=== PATIENT | male | born 1960 | race Two or more races ===

== ENCOUNTER 2016-10-19 12:08 | Inpatient (IN) | payer MEDICAID ==
[~2016-10-19] VITALS: Ht 165.1 cm; Wt 74.8 kg
[2016-10-19] MEDS ORDERED: Ketorolac 30mg Inj IV ONE (12:30)
[2016-10-19] MEDS ORDERED: Morphine Sulfate 2mg/ml Inj IVP ONE (12:30)
[2016-10-19] MEDS ORDERED: Famotidine 20 MG/ 2ML VIAL IVP ONE (12:30)
[2016-10-19 12:34] VITALS: BP 158/93
[2016-10-19 12:53] LABS: BASOPHILS % (AUTO) 1.8 % (0.0-2.0); EOSINOPHILS % (AUTO) 3.9 % (0.0-3.0); LYMPHOCYTES % (AUTO) 35.6 % (20.0-45.0); MEAN CORPUSCULAR HEMOGLOBIN 27.4 PG (27.0-31.0); MEAN CORPUSCULAR HGB CONC 34.3 G/DL (32.0-36.0); MEAN CORPUSCULAR VOLUME 80 FL (80-99); MONOCYTES % (AUTO) 11.3 % (1.0-10.0); NEUTROPHILS % (AUTO) 47.5 % (45.0-75.0); PLATELET COUNT 353 K/UL (150-450); RED CELL DISTRIBUTION WIDTH 11.2 % (11.6-14.8); WHITE BLOOD COUNT 6.6 K/UL (4.8-10.8)
[2016-10-19 13:09] LABS: INR 1.1 (0.9-1.1); PROTHROMBIN TIME 11.4 SEC (9.30-11.50)
[2016-10-19 13:17] LABS: TROPONIN I < 0.30 ng/mL (<=0.30)
[2016-10-19 13:20] LABS: ALANINE AMINOTRANSFERASE 18 U/L (3-41); ALBUMIN/GLOBULIN RATIO 1.2 (1.0-2.7); ANION GAP 19 (5-15); ASPARTATE AMINO TRANSFERASE 25 U/L (5-40); CALCIUM 9.7 mg/dL (8.6-10.2); CARBON DIOXIDE 23 mEQ/L (20-30); CHLORIDE 80 mEQ/L (98-107); CREATININE 0.7 mg/dL (0.7-1.2); GLOMERULAR FILTRATION RATE > 60 mL/min (>60); HEMOLYSIS 10; POTASSIUM 3.5 mEQ/L (3.4-4.9); SODIUM 122 mEQ/L (135-145); TOTAL PROTEIN 7.8 g/dL (6.6-8.7)
[2016-10-19 14:04] LABS: ERYTHROCYTE SEDIMENTATION RATE 2 MM/HR (0-20)
[2016-10-19 14:20] VITALS: BP 147/83
[2016-10-19 15:06] LABS: APPEARANCE,URINE CLEAR; KETONES,URINE NEGATIVE (NEGATIVE); LEUKOCYTE ESTERASE ,URINE NEGATIVE (NEGATIVE); NITRITE,URINE NEGATIVE (NEGATIVE); PH,URINE 8 (4.5-8.0); PROTEIN,URINE NEGATIVE (NEGATIVE); UROBILINOGEN,URINE NORMAL MG/DL (0.0-1.0)
--- NOTE | 2016-10-19 15:07 | Emergency Room Report ---
History of Present Illness General Chief Complaint: Flu Like Symptoms Source: Patient, EMS Present Illness HPI The patient presents with 2 days of weakness and headache. He's also felt unsteady on his feet. He's been vomiting. He has no diarrhea. He is a history of diabetes and takes homeopathic medicine for that. He's not sure how his blood sugars are but paramedics had a glucose of 135 in the field. The pain in his head is 8/10, diffuse, not radiating, pressure. Only homeopathic meds taken without relief. No prior headaches. Onset gradual. No neck stiffness. The pain in his stomach is also diffuse, constant and pressure. It is less than the headache. No fever, change in stools, chest pain (EKG in field reported as normal), dyspnea, cough, URI symptoms, rashes, extremity pain. No numbness. Some generalized weakness. No depression. On homeopathic meds for diabetes. 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 daughter Reviewed Nursing Documentation: PMH: Agreed, PSxH: Agreed Nursing Documentation-PMH Past Medical History: No History, Except For Hx Hypertension: Yes Hx Diabetes: Yes Review of Systems All Other Systems: negative except mentioned in HPI Physical Exam Vital Signs Date Time Temp Pulse Resp B/P Pulse Ox O2 Delivery O2 Flow Rate FiO2 10/19/16 12:06 99.9 84 24 158/93 97 Room Air 10/19/16 12:20 97 Sp02 EP Interpretation: reviewed, normal General Appearance: well appearing, no apparent distress, GCS 15 Head: normocephalic Eyes: bilateral eye PERRL, bilateral eye normal inspection ENT: moist mucus membranes Neck: full range of motion, supple, no meningismus Respiratory: lungs clear, normal breath sounds Cardiovascular #1: regular rate, rhythm Cardiovascular #2: 2+ radial (R) Gastrointestinal: normal inspection, normal bowel sounds, non tender, no mass, non-distended Musculoskeletal: back normal, gait/station normal, normal range of motion Neurologic: alert, oriented x3, motor strength/tone normal, DTRs symmetric, sensory intact, speech normal Psychiatric: depressed affect Skin: normal inspection, warm/dry Medical Decision Making Diagnostic Impression: Primary Impression: Hyponatremia Additional Impressions: Diabetes Qualified Codes: E11.9 - Type 2 diabetes mellitus without complications Headache Qualified Codes: R51 - Headache ER Course Patient presents with headache and vomiting with h/o diabetes. Ddx: tension, migraine, electrolyte abnormality, viral syndrome amongst others. No fever or meningismus so meningitis and cerebritis less likely. Evaluation with CT, labs , EKG and CXR. Treatment with IV hydration and analgesia. Labs with low sodium. Mildly elevated glucose. CT, CXR and EKG normal. Treated with saline and analgesia with improvement. May need further evaluation of RIOS. Consider MRI. Admit med Dr. Mendoza. Laboratory Tests Test 10/19/16 12:30 10/19/16 14:30 White Blood Count 6.6 K/UL (4.8-10.8) Red Blood Count 5.50 M/UL (4.70-6.10) Hemoglobin 15.1 G/DL (14.2-18.0) Hematocrit 43.9 % (42.0-52.0) Mean Corpuscular Volume 80 FL (80-99) Mean Corpuscular Hemoglobin 27.4 PG (27.0-31.0) Mean Corpuscular Hemoglobin Concent 34.3 G/DL (32.0-36.0) Red Cell Distribution Width 11.2 % (11.6-14.8) L Platelet Count 353 K/UL (150-450) Mean Platelet Volume 6.0 FL (6.5-10.1) L Neutrophils (%) (Auto) 47.5 % (45.0-75.0) Lymphocytes (%) (Auto) 35.6 % (20.0-45.0) Monocytes (%) (Auto) 11.3 % (1.0-10.0) H Eosinophils (%) (Auto) 3.9 % (0.0-3.0) H Basophils (%) (Auto) 1.8 % (0.0-2.0) Erythrocyte Sedimentation Rate 2 MM/HR (0-20) Prothrombin Time 11.4 SEC (9.30-11.50) Prothrombin Time INR 1.1 (0.9-1.1) PTT 33 SEC (23-33) Sodium Level 122 mEQ/L (135-145) L Potassium Level 3.5 mEQ/L (3.4-4.9) Chloride Level 80 mEQ/L (98-107) L Carbon Dioxide Level 23 mEQ/L (20-30) Anion Gap 19 (5-15) H Blood Urea Nitrogen 7 mg/dL (7-23) Creatinine 0.7 mg/dL (0.7-1.2) Estimate Glomerular Filtration Rate > 60 mL/min (>60) Glucose Level 122 mg/dL (74-106) H Lactic Acid Level 1.70 mmol/L (0.66-2.22) Calcium Level 9.7 mg/dL (8.6-10.2) Total Bilirubin 0.6 mg/dL (0.0-1.2) Aspartate Amino Transferase (AST) 25 U/L (5-40) Alanine Aminotransferase (ALT) 18 U/L (3-41) Alkaline Phosphatase 79 U/L (40-129) Total Creatine Kinase 572 U/L (38-174) H Troponin I < 0.30 ng/mL (<=0.30) Pro-B-Type Natriuretic Peptide 61 pg/mL (0-125) Total Protein 7.8 g/dL (6.6-8.7) Albumin 4.4 g/dL (3.5-5.2) Globulin 3.4 g/dL Albumin/Globulin Ratio 1.2 (1.0-2.7) Urine Color Pending Urine Appearance Pending Urine pH Pending Urine Specific [place] Pending Urine Protein Pending Urine Glucose (UA) Pending Urine Ketones Pending Urine Occult Blood Pending Urine Nitrite Pending Urine Bilirubin Pending Urine Urobilinogen Pending Urine Leukocyte Esterase Pending Urine Random Sodium Pending EKG Diagnostic Results Rate: normal Rhythm: NSR ST Segments: no acute changes Rhythm Strip Diag. Results EP Interpretation: yes Rhythm: NSR, no PVC's, no ectopy Chest X-Ray Diagnostic Results EP Interpretation: Yes Findings: no consolidation, no effusion, no pneumothorax, no acute cardiopulmonary disease Number of Views: 1 CT/MRI/US Diagnostic Results CT/MRI/US Diagnostic Results : Imaging Test Ordered: head Impression nl Last Vital Signs Date Time Temp Pulse Resp B/P Pulse Ox O2 Delivery O2 Flow Rate FiO2 10/19/16 16:37 97.0 71 22 150/90 98 Room Air 10/19/16 15:58 97 Status: improved Disposition: ADMITTED INPATIENT Condition: Serious Referrals: NOT CHOSEN IPA/MD,REFERRING (PCP) Marco Garcia M.D. October 19, 2016 15:07
[2016-10-19] MEDS ORDERED: NKM (15:12)
[2016-10-19] MEDS ORDERED: Morphine Sulfate 4mg/ml Inj IVP PRN (15:30)
[2016-10-19 16:37] VITALS: BP 150/90
[2016-10-19 20:00] VITALS: BP 123/71
--- NOTE | 2016-10-19 20:12 | History & Physical ---
History and Physical History & Physicial > dictated # [id number] JOYCELYN CLARK October 19, 2016 20:12
[2016-10-19] MEDS ORDERED: Norco 10mg/325mg tab ORAL PRN (20:15)
[2016-10-19] MEDS: Morphine Sulfate 4mg/ml Inj IV PRN (21:27)
[2016-10-19] MEDS ORDERED: NaCl 3% 500ml 250 ML IV ONE (21:30)
[2016-10-19] MEDS: NovoLOG Insulin Flexpen SUBQ SCH (21:33)
[2016-10-20] VITALS: BP 108/67
--- NOTE | 2016-10-20 03:39 | History and Physical Report ---
DATE OF ADMISSION: 10/19/2016 CHIEF COMPLAINT: Weakness and headache. HISTORY OF PRESENT ILLNESS: This is a 56-year-old male, who came to the emergency room with the chief complaint of headaches and weakness for the past two days. The patient has also nausea and has been vomiting. The patient presented to the emergency room and was found to have hyponatremia with the serum sodium 122 and was admitted for further care. PAST MEDICAL HISTORY: The patient does have a history of diabetes, but he was not taking any medication except some herbal medicines and there is also reported history of hypertension. MEDICATIONS: None at home. ALLERGIES: No known drug allergies. SOCIAL HISTORY: No history of smoking or alcohol abuse. REVIEW OF SYSTEMS: As above. PHYSICAL EXAMINATION: GENERAL: The patient is a 56-year-old male, in no acute distress. VITAL SIGNS: Blood pressure is 158/92, pulse 84, temperature 99.4 degrees, and respiratory rate 24. HEENT: [place] conjunctivae. Anicteric sclerae. NECK: Supple. LUNGS: Clear to auscultation. HEART: S1 and S2 without murmurs or rubs. ABDOMEN: Soft and nontender. EXTREMITIES: No cyanosis or edema. LABORATORY FINDINGS: CBC shows a WBC of 6.6, hematocrit 33.9, hemoglobin 15.1, and platelet 353,000. The chemistry panel shows a sodium of 122, potassium 3.5, chloride 80, CO2 23, BUN 7, creatinine 0.7, and glucose 122. Albumin is 4.4. ASSESSMENT: This is a 56-year-old male was admitted with nausea, vomiting, and some headache and has hyponatremia. He did had urine sodium checked in the emergency room was 105, so he does not appear to have psychogenic polydipsia although he states he takes a lot of fluids every day. 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 Other possibility such as hypothyroidism need to be ruled out. PLAN: The patient will be on free water restriction. I will give the patient 3% saline for a total of 250 mL because of these symptoms. The patient's TSH will be checked with chemistry panel tomorrow. Further adjustment will be made based on those results. Ulisses Leblanc M.D. DR: Shanice JOB#: [id number] CC: TIMO
[2016-10-20 04:00] VITALS: BP 101/57
[2016-10-20] MEDS: NovoLOG Insulin Flexpen SUBQ SCH ×4 (06:30→21:00)
[2016-10-20 06:35] LABS: BASOPHILS % (AUTO) 1.5 % (0.0-2.0); EOSINOPHILS % (AUTO) 3.8 % (0.0-3.0); LYMPHOCYTES % (AUTO) 30.4 % (20.0-45.0); MEAN CORPUSCULAR HEMOGLOBIN 28.4 PG (27.0-31.0); MEAN CORPUSCULAR VOLUME 81 FL (80-99); MONOCYTES % (AUTO) 11.8 % (1.0-10.0); NEUTROPHILS % (AUTO) 52.6 % (45.0-75.0); PLATELET COUNT 324 K/UL (150-450); RED BLOOD COUNT 4.93 M/UL (4.70-6.10); RED CELL DISTRIBUTION WIDTH 11.6 % (11.6-14.8); WHITE BLOOD COUNT 5.7 K/UL (4.8-10.8)
[2016-10-20 08:59] LABS: ANION GAP 15 (5-15); CALCIUM 8.9 mg/dL (8.6-10.2); CARBON DIOXIDE 23 mEQ/L (20-30); CHLORIDE 91 mEQ/L (98-107); CREATININE 0.7 mg/dL (0.7-1.2); GLOMERULAR FILTRATION RATE > 60 mL/min (>60); HEMOLYSIS 15; POTASSIUM 5.1 mEQ/L (3.4-4.9); SODIUM 129 mEQ/L (135-145)
[2016-10-20] MEDS ORDERED: Tubing IV Secondary IV ONE (09:33)
[2016-10-20] MEDS: Morphine Sulfate 4mg/ml Inj IV PRN ×2 (10:44→19:19)
[2016-10-20 12:00] VITALS: BP 120/75
--- NOTE | 2016-10-20 13:36 | General Progress Note ---
Assessment/Plan Problem List: (1) Hyponatremia ICD Codes: E87.1 - Hypo-osmolality and hyponatremia SNOMED: 44150949 (2) Headache ICD Codes: R51 - Headache SNOMED: 81974792 Qualifiers: Qualified Codes: R51 - Headache (3) Diabetes ICD Codes: E11.9 - Type 2 diabetes mellitus without complications SNOMED: 41576775 Qualifiers: Qualified Codes: E11.9 - Type 2 diabetes mellitus without complications Status Narrative better Assessment/Plan CT brain free water restriction follow S Na Subjective Allergies: Coded Allergies: No Known Allergies (Unverified , 10/19/16) Subjective C/O RIOS Objective Last 24 Hour Vital Signs Date Time Temp Pulse Resp B/P Pulse Ox O2 Delivery O2 Flow Rate FiO2 10/20/16 12:00 96.1 70 16 120/75 95 Room Air 10/20/16 04:00 97.0 76 18 101/57 96 Room Air 10/20/16 00:00 97.0 75 18 108/67 96 Room Air 10/19/16 21:57 97.0 10/19/16 20:00 96.8 73 18 123/71 96 Room Air 10/19/16 19:04 97.0 10/19/16 16:37 97.0 71 22 150/90 98 Room Air 10/19/16 16:35 97.0 10/19/16 15:58 97.6 75 24 120/74 97 Room Air 97 10/19/16 14:58 97.6 10/19/16 14:58 97.6 10/19/16 14:20 97.6 66 24 147/83 97 Room Air 97 Intake and Output 10/19/16 10/20/16 19:00 07:00 Intake Total 1000 ml 150 ml Balance 1000 ml 150 ml Intake Oral 0 ml IV Total 1000 ml 150 ml Laboratory Tests 10/19/16 14:30: Urine Color Pale yellow, Urine Appearance Clear, Urine pH 8, Urine Specific [place] 1.015, Urine Protein Negative, Urine Glucose (UA) Negative, Urine Ketones Negative, Urine Occult Blood Negative, Urine Nitrite Negative, Urine Bilirubin Negative, Urine Urobilinogen Normal, Urine Leukocyte Esterase Negative , Urine Random Sodium 105 10/19/16 20:00: Urine Osmolality [Pending] 10/20/16 05:05: White Blood Count 5.7, Red Blood Count 4.93, Hemoglobin 14.0L, Hematocrit 40.0L , Mean Corpuscular Volume 81, Mean Corpuscular Hemoglobin 28.4, Mean Corpuscular Hemoglobin Concent 35.0, Red Cell Distribution Width 11.6, Platelet Count 324, Mean Platelet Volume 6.0L, Neutrophils (%) (Auto) 52.6, Lymphocytes ( %) (Auto) 30.4, Monocytes (%) (Auto) 11.8H, Eosinophils (%) (Auto) 3.8H, Basophils (%) (Auto) 1.5, Sodium Level 129L, Potassium Level 5.1H, Chloride Level 91L, Carbon Dioxide Level 23, Anion Gap 15, Blood Urea Nitrogen 10, Creatinine 0.7, Estimat Glomerular Filtration Rate > 60, Glucose Level 104, Calcium Level 8.9, Thyroid Stimulating Hormone (TSH) 2.590 Height (Feet): 5 Height (Inches): 5.00 Weight (Pounds): 165 Cardiovascular: normal rate Respiratory/Chest: lungs clear JOYCELYN CLARK October 20, 2016 13:36
[2016-10-20 20:00] VITALS: BP 125/69
[2016-10-20 23:36] VITALS: BP 99/61
[2016-10-21 04:00] VITALS: BP 109/64
[2016-10-21] MEDS: NovoLOG Insulin Flexpen SUBQ SCH ×2 (06:05→12:01)
[2016-10-21 06:31] LABS: ANION GAP 14 (5-15); CALCIUM 9.2 mg/dL (8.6-10.2); CARBON DIOXIDE 25 mEQ/L (20-30); CHLORIDE 93 mEQ/L (98-107); CREATININE 0.8 mg/dL (0.7-1.2); GLOMERULAR FILTRATION RATE > 60 mL/min (>60); HEMOLYSIS 2; POTASSIUM 4.7 mEQ/L (3.4-4.9); SODIUM 132 mEQ/L (135-145)
--- NOTE | 2016-10-21 08:47 | Diagnostic Imaging Report ---
Indication: Chest pain Technique: XRAY CHEST 1 V Comparison: None Findings: Cardiomediastinal silhouette is within normal limits. There is no consolidation or pleural effusion. Degenerative changes of the spine are seen. Impression: No acute cardiopulmonary disease.
--- NOTE | 2016-10-21 08:47 | Diagnostic Imaging Report ---
Indication: Headache Technique: Continuous helical CT scanning of the head was performed utilizing automated exposure control without intravenous contrast material. Axial and coronal reconstructions were obtained. Comparison: None CT dose: Total DLP 1362 mGycm; CTDI vol 70.4 mGy Findings: There is no acute intracranial hemorrhage, mass effect or cortical edema. The ventricles, cisterns and sulci are within normal limits. The posterior fossa and fourth ventricle are unremarkable. Sellar and suprasellar regions are grossly unremarkable. Visualized mastoid air cells and paranasal sinuses are unremarkable. No focal lesions of the bony calvarium or soft tissues of the scalp are seen. There is a chronic appearing defect of the right medial orbital wall. Impression: No evidence of acute intracranial hemorrhage, mass effect or cortical edema. MRI may be obtained for more sensitive evaluation as clinically indicated. The CT scanner at [facility] is accredited by the [employer] and the scans are performed using protocols designed to limit radiation exposure to as low as reasonably achievable to attain images of sufficient resolution adequate for diagnostic evaluation.
[2016-10-21 09:00] VITALS: BP 111/60
--- NOTE | 2016-10-21 11:07 | Diagnostic Imaging Report ---
Indication: Dizziness Technique: Contiguous 5 mm thick transaxial imaging of the head obtained in a Siemens Sensation [address] scanner. Soft tissue and bone windows generated. Total Dose length Product (DLP): [address] Dose Index Volume (CTDIvol): 70.38 mGy Comparison: 10/19/16 Findings: The size and configuration of the cortical sulci, basal cisterns, and ventricles are within normal limits for age. There is no mass effect, midline shift, or edema identified. There is no evidence of acute hemorrhage or abnormal intra-axial or extra-axial fluid collections. The bones and soft tissues are unremarkable. Impression: No mass effect, edema or acute bleed. No change. The CT scanner at [facility] is accredited by the [employer] and the scans are performed using dose optimization techniques as appropriate to a performed exam including Automatic Exposure control.
[2016-10-21 12:18] VITALS: BP 105/70
[2016-10-21] MEDS ORDERED: METFORMIN HCL500 M1 ORAL (12:49)
--- NOTE | 2016-10-21 12:56 | Consultation ---
Consult Note Assessment/Plan Dc dictated # [id number] JOYCELYN CLARK October 21, 2016 12:56
--- NOTE | 2016-10-21 14:17 | Wound Care Consultation ---
Wound Assessment Wound Assessment #1: Wound Number: #1 Wound Present on Admission: Yes New Wound: No Status Change of Wound: No Wound Location Body Site Modif: left, lateral Wound Location Body Site: heel Wound Type: other - Diabetic ulcer Newton Test: Does not Newton Wound Thickness: Full Thickness Wound Length: 0.5 Wound Width: 0.5 Wound Depth: utd Percent of Wound [place]/Red: 50 Percent of Wound Bed Yellow/Wh: 50 - noted dry thick callus to surrounding outter skin with opening noted to middle of wound bed. Wound Drainage Odor: None/Absent Tissue Surrounding Wound: Indurated Wound General Appearance: Clean/Dry - site noted dry Wound Assessment #2: Wound Number: #2 Wound Present on Admission: Yes New Wound: No Status Change of Wound: No Wound Location Body Site Modif: mid Wound Location Body Site: sacral Wound Type: scar Newton Test: Does not Newton Wound Thickness: Full Thickness Wound Length: 5.0 Wound Width: 6.0 Percent of Wound [place]/Red: 100 Wound Drainage Amount: None Wound Drainage Odor: None/Absent Tissue Surrounding Wound: Intact Wound General Appearance: Open to air, Clean/Dry Wound Comment #1 left lateral heal diabetic ulcer. #2 Mid sacral full thickness scar tissue. Recommendation. - Local wound care as ordered. - Keep clean and dry. -Turn and reposition. - Offload affected site. -Avoid shear and friction. -Optimize nutrition. -Assess and notify MD for any changes of condition noted to skin. ELLIOT REYES October 21, 2016 14:17
--- NOTE | 2016-10-22 06:19 | Discharge Summary ---
DATE OF ADMISSION: 10/19/2016 DATE OF DISCHARGE: 10/21/2016 CHIEF COMPLAINT: The patient had weakness and headache. HISTORY OF PRESENT ILLNESS: This is a 56-year-old male, who is admitted for above symptoms. He was found to have severe hyponatremia with a serum sodium of 122. HOSPITAL COURSE: The patient was given 3% saline at 50 mL an hour for a total of 250 mL. He had urine studies done, which showed a urine sodium of 105, so it was felt that his hyponatremia was a result of SIADH. He had a CT of the brain, which was negative. The patient was kept on free water restriction. On 10/20/2016, his serum sodium was 129 and on 10/21/2016, it was 132. The patient was feeling much better and wanted to go home. Also a TSH was checked and was 2.59. The patient had a history of borderline diabetes and he was on sliding scale insulin, however, he was using minimal amount of insulin, so it was decided to give him a prescription for metformin 500 mg twice a day. DISCHARGE DIAGNOSES: 1. 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 2. Diabetes mellitus. DISCHARGE MEDICATIONS: Metformin 500 mg twice a day. The patient was also advised to restrict his fluid intake to 1 liter a day for the next week. Ulisses Leblanc M.D. DR: LORETTA JOB#: [id number] CC:
== END 2016-10-21 13:45 | disposition home or self-care (01) | DRG 424 ==
LOC: EDBD 12:08 → EMR 12:40 → EDBEDREQ 14:32 → 4W 15:00
DX: E22.2 Syndrome of inappropriate secretion of antidiuretic hormone (principal); I10 Essential (primary) hypertension; E11.9 Type 2 diabetes mellitus without complications
CPT/HCPCS: 36415; 70450; 71010; 80048; 80053; 81003; 82550; 82962; 83605; 83880; 83935; 84300; 84443; 84484; 85025; 85610; 85651; 85730; 86850; 86900; 86901; 93005; J1815; J2405

== ENCOUNTER 2016-12-21 21:14 | Emergency (ER) | payer SELFPAY ==
[~2016-12-21] VITALS: Ht 167.6 cm; Wt 72.6 kg
[~2016-12-21 21:14] MED LIST: METFORMIN HCL500 M1 ORAL; NKM
[2016-12-21] MEDS ORDERED: NKM (21:34)
[2016-12-21] MEDS ORDERED: Bacitracin Oint UD TOPIC ONE (21:45)
[2016-12-21] MEDS ORDERED: Tetanus/Diptheria/Pertussis Vaccine 0.5ml Syr IM ONE (21:45)
[2016-12-21] MEDS ORDERED: Norco 5mg/325mg tab ORAL ONE (21:45)
[2016-12-21 22:10] VITALS: BP 158/78
--- NOTE | 2016-12-22 00:11 | Emergency Room Report ---
History of Present Illness General Chief Complaint: Pain Source: Patient Present Illness HPI Patient presents with severe L leg pain. He had sutures placed over a week ago in his foot for a cut. Now he complains of pain shooting up the outside and back of his leg. 9/10, sharp aching, constant and worse when standing or trying to walk. He feels his veins popped out and became swollen. No fevers. No redness of skin. No dyspnea or chest pain. No prior clots. He has not taken any medicine to help the pain. He has diabetes which he states is fairly well controlled. No URI sy, cough, NVD, dysuria, other extremity pain. The pain causes some anxiety. Allergies: Coded Allergies: No Known Allergies (Unverified , 10/19/16) Patient History Past Medical History: see triage record Social History: Denies: smoking Social History Narrative home Reviewed Nursing Documentation: PMH: Agreed, PSxH: Agreed Nursing Documentation-PMH Hx Cardiac Problems: Yes Hx Hypertension: Yes Hx Diabetes: Yes Hx Cancer: No Hx Gastrointestinal Problems: No Hx Neurological Problems: No Review of Systems All Other Systems: negative except mentioned in HPI Physical Exam Vital Signs Date Time Temp Pulse Resp B/P Pulse Ox O2 Delivery O2 Flow Rate FiO2 12/21/16 21:29 98.2 83 20 190/85 100 Room Air Sp02 EP Interpretation: reviewed, normal General Appearance: well appearing, GCS 15, mild distress - wile walking Head: normocephalic Eyes: bilateral eye PERRL, bilateral eye normal inspection ENT: moist mucus membranes Neck: supple Respiratory: lungs clear, normal breath sounds Cardiovascular #1: regular rate, rhythm Cardiovascular #2: 2+ radial (R) Gastrointestinal: normal inspection, normal bowel sounds, non tender, no mass, non-distended Musculoskeletal: back normal, gait/station normal, normal range of motion, no calf tenderness, Abdirashid's Sign negative Neurologic: alert, oriented x3, grossly normal Psychiatric: anxious Skin: normal inspection, warm/dry, wd healing/no infection noted - no erythema , sutures intact Medical Decision Making Diagnostic Impression: Primary Impression: Leg pain Qualified Codes: M79.605 - Pain in left leg Additional Impressions: Encounter for removal of sutures Diabetes Qualified Codes: E11.8 - Type 2 diabetes mellitus with unspecified complications ER Course Patient with leg pain after sutures in his foot. DDx: mechanical variance, DVT , cellulitis, neuropathy amongst others. Emergent evaluation with non-invasive study, accucheck. Sutures will be removed. He will be treated for pain. Sutures removed. Vasc study negative for DVT. Accucheck 153. Patient improved and re-assured. Patient stable for outpatient observation and treatment. CT/MRI/US Diagnostic Results CT/MRI/US Diagnostic Results : Imaging Test Ordered: non-invasive vasc L leg Impression no dvt Last Vital Signs Date Time Temp Pulse Resp B/P Pulse Ox O2 Delivery O2 Flow Rate FiO2 12/22/16 00:29 98.2 68 20 152/80 100 Room Air Status: improved Disposition: HOME, SELF-CARE Condition: Improved Scripts Ibuprofen* (MOTRIN*) 600 Mg Tablet 600 MG ORAL Q6H Y for For Pain, #20 TAB Prov: Marco Garcia M.D. 12/22/16 Tramadol Hcl* (ULTRAM*) 50 Mg Tablet 50 MG ORAL Q6H Y for For Pain, #10 TAB 0 Refills Prov: Marco Garcia M.D. 12/22/16 Bacitracin (Bacitracin) 28.4 Gm Oint...g. 1 APPLIC TOPIC BID, #10 GM Prov: Marco Garcia M.D. 12/22/16 Referrals: NOT CHOSEN TORI/,REFERRING (PCP) Marco Garcia M.D. Dec 22, 2016 00:11
[2016-12-22] MEDS ORDERED: IBUPROFEN600 MG ORAL (00:16)
[2016-12-22] MEDS ORDERED: TRAMADOL HCL50 MG ORAL (00:16)
[2016-12-22] MEDS ORDERED: BACITRACIN15 GM TOPIC (00:16)
[2016-12-22 00:29] VITALS: BP 152/80
--- NOTE | 2016-12-25 07:51 | Diagnostic Imaging Report ---
APPROVED REPORT CPT Code: 24720 Present Symptoms Lower Extremity Pain: Left LEFT LEG: Venous imaging reveals recanalized chronic thrombus in mid superficial femoral chen.Large collateral vein noted anterior to the superficial femoral artery. Imaging also reveals patency of the common femoral , popliteal and calf veins. The greater saphenous vein is also within normal limits. Doppler indicates normal spontaneous flow within these segments.
== END 2016-12-22 00:31 | disposition home or self-care (01) ==
LOC: EMR 22:00
DX: M79.605 Pain in left leg (principal); E11.9 Type 2 diabetes mellitus without complications; Z48.02 Encounter for removal of sutures; Z23 Encounter for immunization; I10 Essential (primary) hypertension
CPT/HCPCS: 90471; 90715; 93971; 96372; 99283

== ENCOUNTER 2017-02-02 17:41 | Inpatient (IN) | payer SELFPAY ==
[~2017-02-02] VITALS: Ht 167.6 cm; Wt 76.2 kg
[~2017-02-02 17:41] MED LIST changes: +BACITRACIN15 GM TOPIC; +IBUPROFEN600 MG ORAL; +TRAMADOL HCL50 MG ORAL
[2017-02-02 18:00] VITALS: BP 152/74
[2017-02-02] MEDS ORDERED: LORazepam Inj 2mg/ml 1ml IV ONE (18:00)
[2017-02-02] MEDS ORDERED: Nitroglycerin 2% oint pkt TOPIC ONE (18:00)
[2017-02-02] MEDS ORDERED: Morphine Sulfate 4mg/ml Inj IVP ONE ×2 (18:00→21:00)
[2017-02-02 18:18] LABS: BASOPHILS % (AUTO) 1.9 % (0.0-2.0); LYMPHOCYTES % (AUTO) 42.2 % (20.0-45.0); MEAN CORPUSCULAR HEMOGLOBIN 29.8 PG (27.0-31.0); MEAN CORPUSCULAR HGB CONC 37.3 G/DL (32.0-36.0); MEAN CORPUSCULAR VOLUME 80 FL (80-99); MEAN PLATELET VOLUME 4.9 FL (6.5-10.1); MONOCYTES % (AUTO) 9.3 % (1.0-10.0); NEUTROPHILS % (AUTO) 42.5 % (45.0-75.0); PLATELET COUNT 292 K/UL (150-450); RED BLOOD COUNT 4.47 M/UL (4.70-6.10); RED CELL DISTRIBUTION WIDTH 11.5 % (11.6-14.8); WHITE BLOOD COUNT 6.1 K/UL (4.8-10.8)
[2017-02-02 18:31] LABS: INR 1.1 (0.9-1.1); PROTHROMBIN TIME 11.2 SEC (9.30-11.50)
[2017-02-02 18:32] LABS: TROPONIN I < 0.30 ng/mL (<=0.30)
[2017-02-02 18:36] LABS: ALANINE AMINOTRANSFERASE 12 U/L (3-41); ALBUMIN/GLOBULIN RATIO 1.5 (1.0-2.7); ANION GAP 16 (5-15); ASPARTATE AMINO TRANSFERASE 22 U/L (5-40); CALCIUM 8.6 mg/dL (8.6-10.2); CARBON DIOXIDE 22 mEQ/L (20-30); CHLORIDE 84 mEQ/L (98-107); CREATININE 0.7 mg/dL (0.7-1.2); GLOMERULAR FILTRATION RATE > 60 mL/min (>60); HEMOLYSIS 7; POTASSIUM 3.2 mEQ/L (3.4-4.9); SODIUM 122 mEQ/L (135-145); TOTAL PROTEIN 7.2 g/dL (6.6-8.7)
--- NOTE | 2017-02-02 18:44 | Emergency Room Report ---
History of Present Illness General Chief Complaint: Chest Pain Source: Patient Present Illness HPI The patient presents with severe left-sided chest pain. He states it is pressure. It began yesterday. He feels radiating up to his left arm. He also feels short of breath and also week at this time. It is constant and worsening. The pain is 10/10 at this moment. He denies any fevers or productive cough. He also complains of headache. The patient's been seen for similar pain in the past. Was admitted in October for hyponatremia. He has been seen for an ankle wound which was sutured and sutures were removed. He still complains of problems with some pain in his ankle. He has diabetes and states sugars fairly well controlled, not on insulin. Some nausea, no vomit. No change in bowels. Allergies: Coded Allergies: No Known Allergies (Unverified , 10/19/16) Patient History Past Medical History: see triage record Social History: Denies: smoking Social History Narrative sales Reviewed Nursing Documentation: PMH: Agreed, PSxH: Agreed Nursing Documentation-PMH Hx Cardiac Problems: Yes Hx Hypertension: Yes Hx Diabetes: Yes Hx Cancer: No Hx Gastrointestinal Problems: No Hx Neurological Problems: No Review of Systems All Other Systems: negative except mentioned in HPI Physical Exam Vital Signs Date Time Temp Pulse Resp B/P (MAP) Pulse Ox O2 Delivery O2 Flow Rate FiO2 02/02/17 17:45 98.2 81 12 166/85 100 02/02/17 18:00 Room Air Sp02 EP Interpretation: reviewed, normal General Appearance: well appearing, GCS 15, mild distress Head: normocephalic, atraumatic Eyes: bilateral eye normal inspection, bilateral eye PERRL ENT: moist mucus membranes Neck: supple Respiratory: lungs clear, normal breath sounds Cardiovascular #1: regular rate, rhythm Cardiovascular #2: 2+ radial (R) Gastrointestinal: normal inspection, normal bowel sounds, non tender, no mass, non-distended Musculoskeletal: back normal, gait/station normal, normal range of motion Neurologic: alert, oriented x3, other - some carpal-pedal spasm, grossly normal Psychiatric: anxious Skin: normal inspection, warm/dry Medical Decision Making Diagnostic Impression: Primary Impression: Hyponatremia Additional Impressions: Chest pain Qualified Codes: R07.9 - Chest pain, unspecified Anxiety ER Course Patient presents with chest pressure and dysphoria. Differential includes acute myocardial infarction, acute coronary syndrome, electrolyte imbalance (in particular with history of hyponatremia), costochondritis, and anxiety amongst others. Evaluation with will be with EKG and cardiac monitoring with labs including electrolytes and troponin. The patient be treated with aspirin and nitrates and Ativan. EKG normal. CXR normal. Labs significant for low sodium and slightly elevated glucose. Troponin negative. Urine sodium 129. Improved with treatment. C/O headache. Morphine ordered. Patient clinically stable for telemetry. Dr. Mitchell wants patient in [facility] or ICU due to 3% NS. Will stop 3% and repeat sodium. Repeat sodium 129. Improved and stable for admission to telemetry. Admit telemetry, Dr. Vargas. Dr. Mitchell implementation director. Laboratory Tests Test 02/02/17 18:05 02/02/17 19:00 White Blood Count 6.1 K/UL (4.8-10.8) Red Blood Count 4.47 M/UL (4.70-6.10) L Hemoglobin 13.3 G/DL (14.2-18.0) L Hematocrit 35.7 % (42.0-52.0) L Mean Corpuscular Volume 80 FL (80-99) Mean Corpuscular Hemoglobin 29.8 PG (27.0-31.0) Mean Corpuscular Hemoglobin Concent 37.3 G/DL (32.0-36.0) H Red Cell Distribution Width 11.5 % (11.6-14.8) L Platelet Count 292 K/UL (150-450) Mean Platelet Volume 4.9 FL (6.5-10.1) L Neutrophils (%) (Auto) 42.5 % (45.0-75.0) L Lymphocytes (%) (Auto) 42.2 % (20.0-45.0) Monocytes (%) (Auto) 9.3 % (1.0-10.0) Eosinophils (%) (Auto) 4.0 % (0.0-3.0) H Basophils (%) (Auto) 1.9 % (0.0-2.0) Prothrombin Time 11.2 SEC (9.30-11.50) Prothrombin Time INR 1.1 (0.9-1.1) PTT 31 SEC (23-33) Sodium Level 122 mEQ/L (135-145) L Potassium Level 3.2 mEQ/L (3.4-4.9) L Chloride Level 84 mEQ/L (98-107) L Carbon Dioxide Level 22 mEQ/L (20-30) Anion Gap 16 (5-15) H Blood Urea Nitrogen 7 mg/dL (7-23) Creatinine 0.7 mg/dL (0.7-1.2) Estimate Glomerular Filtration Rate > 60 mL/min (>60) Glucose Level 154 mg/dL (74-106) H Calcium Level 8.6 mg/dL (8.6-10.2) Total Bilirubin 0.4 mg/dL (0.0-1.2) Aspartate Amino Transferase (AST) 22 U/L (5-40) Alanine Aminotransferase (ALT) 12 U/L (3-41) Alkaline Phosphatase 77 U/L (40-129) Total Creatine Kinase 575 U/L (38-174) H Troponin I < 0.30 ng/mL (<=0.30) Pro-B-Type Natriuretic Peptide 23 pg/mL (0-125) Total Protein 7.2 g/dL (6.6-8.7) Albumin 4.4 g/dL (3.5-5.2) Globulin 2.8 g/dL Albumin/Globulin Ratio 1.5 (1.0-2.7) Urine Color Pale yellow Urine Appearance Clear Urine pH 8 (4.5-8.0) Urine Specific [place] 1.010 (1.005-1.035) Urine Protein Negative (NEGATIVE) Urine Glucose (UA) Negative (NEGATIVE) Urine Ketones Negative (NEGATIVE) Urine Occult Blood Negative (NEGATIVE) Urine Nitrite Negative (NEGATIVE) Urine Bilirubin Negative (NEGATIVE) Urine Urobilinogen Normal MG/DL (0.0-1.0) Urine Leukocyte Esterase Negative (NEGATIVE) Urine Random Sodium 129 mmol/L Urine Opiates Screen Positive (NEGATIVE) H Urine Barbiturates Screen Negative (NEGATIVE) Phencyclidine (PCP) Screen Negative (NEGATIVE) Urine Amphetamines Screen Negative (NEGATIVE) Urine Benzodiazepines Screen Negative (NEGATIVE) Urine Cocaine Screen Negative (NEGATIVE) Urine Marijuana (THC) Screen Negative (NEGATIVE) EKG Diagnostic Results Rate: normal Rhythm: NSR ST Segments: no acute changes Rhythm Strip Diag. Results EP Interpretation: yes Rhythm: NSR, no PVC's, no ectopy Chest X-Ray Diagnostic Results Chest X-Ray Diagnostic Results : Chest X-Ray Ordered: Yes # of Views/Limited/Complete: 1 View Indication: Chest Pain EP Interpretation: Yes Interpretation: no consolidation, no effusion, no pneumothorax Impression: No acute disease Interpreting ER Provider: Electronically signed by Marco Garcia MD Last Vital Signs Date Time Temp Pulse Resp B/P (MAP) Pulse Ox O2 Delivery O2 Flow Rate FiO2 02/02/17 23:25 97.8 69 20 119/80 100 Nasal Cannula 2.0 Status: improved Disposition: ADMITTED INPATIENT Condition: Serious Marco Garcia M.D. Feb 02, 2017 18:44
[2017-02-02] MEDS ORDERED: NaCl 3% 500ml 250 ML IVPB ONE (18:45)
[2017-02-02 19:29] VITALS: BP 140/88
[2017-02-02 19:35] LABS: APPEARANCE,URINE CLEAR; KETONES,URINE NEGATIVE (NEGATIVE); LEUKOCYTE ESTERASE ,URINE NEGATIVE (NEGATIVE); NITRITE,URINE NEGATIVE (NEGATIVE); PH,URINE 8 (4.5-8.0); PROTEIN,URINE NEGATIVE (NEGATIVE); UROBILINOGEN,URINE NORMAL MG/DL (0.0-1.0)
[2017-02-02 20:36] VITALS: BP 118/73
[2017-02-02 21:44] VITALS: BP 109/68
[2017-02-02 22:29] VITALS: BP 108/87
[2017-02-02 22:59] LABS: ANION GAP 14 (5-15); CALCIUM 8.7 mg/dL (8.6-10.2); CARBON DIOXIDE 22 mEQ/L (20-30); CHLORIDE 93 mEQ/L (98-107); CREATININE 0.6 mg/dL (0.7-1.2); GLOMERULAR FILTRATION RATE > 60 mL/min (>60); HEMOLYSIS 5; POTASSIUM 4.3 mEQ/L (3.4-4.9); SODIUM 129 mEQ/L (135-145)
[2017-02-02 23:25] VITALS: BP 119/80
[2017-02-03] MEDS ORDERED: Nitroglycerin Subl 0.4mg tab (Bottle Of 25) SL PRN (01:15)
[2017-02-03] MEDS ORDERED: Norco 5mg/325mg tab ORAL PRN (01:15)
[2017-02-03 04:00] VITALS: BP 109/65
[2017-02-03 05:08] LABS: BASOPHILS % (AUTO) 1.7 % (0.0-2.0); EOSINOPHILS % (AUTO) 5.1 % (0.0-3.0); LYMPHOCYTES % (AUTO) 42.9 % (20.0-45.0); MEAN CORPUSCULAR HGB CONC 34.5 G/DL (32.0-36.0); MEAN CORPUSCULAR VOLUME 84 FL (80-99); MONOCYTES % (AUTO) 11.1 % (1.0-10.0); NEUTROPHILS % (AUTO) 39.1 % (45.0-75.0); PLATELET COUNT 321 K/UL (150-450); RED BLOOD COUNT 4.76 M/UL (4.70-6.10); RED CELL DISTRIBUTION WIDTH 11.6 % (11.6-14.8); WHITE BLOOD COUNT 4.4 K/UL (4.8-10.8)
[2017-02-03 05:28] LABS: TROPONIN I < 0.30 ng/mL (<=0.30)
[2017-02-03 05:29] LABS: ANION GAP 11 (5-15); CARBON DIOXIDE 22 mEQ/L (20-30); CHLORIDE 98 mEQ/L (98-107); CREATININE 0.6 mg/dL (0.7-1.2); POTASSIUM 4.7 mEQ/L (3.4-4.9); SODIUM 131 mEQ/L (135-145)
[2017-02-03 05:30] LABS: CALCIUM 8.8 mg/dL (8.6-10.2); CHOLESTEROL 146 mg/dL (< 200); CHOLESTEROL/HDL RATIO 6.1 (3.3-4.4); GLOMERULAR FILTRATION RATE > 60 mL/min (>60); HEMOLYSIS 4; LDL CHOLESTEROL (CALC.) 102 mg/dL (60-99); URIC ACID 5.8 mg/dL (3.0-7.5)
[2017-02-03 05:39] LABS: HEMOGLOBIN A1C 6.5 % (< 6.0)
[2017-02-03] MEDS: NovoLOG Insulin Flexpen SUBQ SCH ×3 (06:05→16:30)
[2017-02-03 08:00] VITALS: BP 124/68
[2017-02-03] MEDS ORDERED: Heparin 5000 units/ml inj SUBQ SCH (09:00)
[2017-02-03] MEDS ORDERED: Aspirin Baby 81mg ORAL SCH (09:00)
[2017-02-03 11:01] LABS: TROPONIN I < 0.30 ng/mL (<=0.30)
[2017-02-03 11:44] VITALS: BP 114/70
--- NOTE | 2017-02-03 11:44 | Diagnostic Imaging Report ---
Indication: Chest pain Comparison: 10/19/16 A single view chest radiograph was obtained. Findings: Cardiomediastinal appearance is within normal limits for age. Pulmonary vascularity is appropriate. The diaphragmatic contour is smooth and costophrenic angles are sharp. No pleural effusions are identified. The bones are unremarkable. Impression: No acute findings
[2017-02-03 16:00] VITALS: BP 117/74
--- NOTE | 2017-02-03 19:37 | Cardiology Report ---
APPROVED REPORT EXAM: Two-dimensional and M-mode echocardiogram with Doppler and color Doppler. INDICATION Chest Pain M-Mode DIMENSIONS IVSd1.0 (0.7-1.1cm)Left Atrium (MM)3.9 (1.6-4.0cm) LVDd4.3 (3.5-5.6cm)Aortic Root3.0 (2.0-3.7cm) PWd0.8 (0.7-1.1cm)Aortic Cusp Exc.1.5 (1.5-2.0cm) LVDs2.4 (2.5-4.0cm) PWs1.8 cm Normal left ventricular chamber size, systolic function and wall motion. Left ventricular ejection fraction estimated to be 60-65 %. Borderline mild left ventricular hypertrophy. Anterior Echo-free space, may be due to pericardial fat or effusion. All other cardiac chamber sizes are within normal limits. Mild focal aortic valve sclerosis with adequate cusp excursion. Mildly thickened mitral valve leaflets with normal excursion. Mild mitral annulus and aortic root calcification. Pulmonic valve not well visualized. Normal tricuspid valve structure. IVC at normal size with physiologic collapse. A color flow and spectral Doppler study was performed and revealed: Mild aortic regurgitation. No mitral regurgitation. Mitral diastolic velocities suggest reduced left ventricular relaxation c/w borderline mild LV diastolic dysfunction (Grade I). Trace tricuspid regurgitation. Tricuspid systolic velocities suggests peak right ventricular systolic pressure of 22 mmHg.
--- NOTE | 2017-02-03 19:40 | Cardiology Report ---
APPROVED REPORT EKG Measurement Heart [id number] Normal sinus rhythm Possible Anterior infarct, age undetermined Abnormal ECG
--- NOTE | 2017-02-04 00:15 | History and Physical Report ---
DATE OF ADMISSION: 02/02/2017 CHIEF COMPLAINT: Multiple including chest pain and left ankle pain. HISTORY OF PRESENT ILLNESS: This is a 56-year-old male who was admitted through the ER with chest pain. Currently, the patient is chest pain-free. The patient was noted to have also left ankle wound. PAST MEDICAL HISTORY: 1. Type 2 diabetes mellitus. 2. Anxiety. HOME MEDICATIONS: Bacitracin local treatment, ibuprofen, metformin, and tramadol p.r.n. ALLERGIES: No known drug allergies. SOCIAL HISTORY: He lives at home. FAMILY HISTORY: Unremarkable. HABITS: He is nonsmoker and nondrinker. There is no history of illicit drug abuse. REVIEW OF SYSTEMS: HEENT: Hearing and eyesight are normal. Endocrine: Significant for type 2 diabetes mellitus. Respiratory: Denies shortness of breath, cough, or hemoptysis. Cardiovascular: He admits to atypical chest pain. Genitourinary: He denies dysuria, frequency, urgency, or hematuria. Neurological: No history of stroke, syncope, or Parkinson disease. PHYSICAL EXAMINATION: GENERAL: This is an elderly male, who is in no acute distress. VITAL SIGNS: Blood pressure 109/65, pulse 79 and regular, respirations 20, and temperature 97 oral. HEENT: The head is normocephalic and atraumatic. Pupils are equal, round, and reactive to light and accommodation consensually. NECK: Supple. Trachea midline. There was no lymphadenopathy or thyromegaly. LUNGS: Clear to auscultation and percussion. HEART: Regular rate and rhythm without rubs, murmurs, or gallops. ABDOMEN: Soft and nontender. Bowel sounds were active. EXTREMITIES: No clubbing, cyanosis, or edema. He has a left heel stage II wound. NEUROLOGICAL: He is alert and oriented x4. Cranial nerves II through XII intact. LABORATORY AND ANCILLARY DATA: CBC within normal limits. Serum chemistries, admission sodium 122 and subsequently 131 the day after. Troponin level less than 0.3 x2. EKG is within normal limits. Glucose less than 150 most of the time. Venous duplex, head CT, and chest x-ray all within normal limits. ASSESSMENT: 1. Hyponatremia, resolving. 2. Chest pain, resolving. No evidence of acute myocardial ischemia. PLAN: 1. Continue current therapy. 2. If the patient's symptoms continue to resolve, discharge home. Yamila Vargas M.D. DR: CHANDLER JOB#: [id number] CC:
--- NOTE | 2017-02-05 09:41 | Discharge Summary ---
Discharge Summary Hospital Course Date of Admission Feb 02, 2017 at 20:33 Date of Discharge Feb 03, 2017 at 18:40 Admitting Diagnosis hyponatremia STEVEN Hernandez is a 56 year old male who was admitted on Feb 02, 2017 at 20:33 for Hyponatremia Hospital Course dc summary #[id number] Discharge Medications Continued Medications: Bacitracin (Bacitracin) 28.4 Gm Oint...g. 1 APPLIC TOPIC BID, #10 GM Ibuprofen* (Motrin*) 600 Mg Tablet 600 MG ORAL Q6H PRN for For Pain, #20 TAB Metformin Hcl* (Metformin Hcl*) 500 Mg Tablet 500 MG ORAL TWICE A DAY for 30 Days, TAB Tramadol Hcl* (Ultram*) 50 Mg Tablet 50 MG ORAL Q6H PRN for For Pain, #10 TAB 0 Refills Discharge Condition Upon Discharge: stable Discharge Disposition Patient was discharged to Home (01) Discharge Diagnoses: Discharge Instructions Discharge Instructions Special Instructions I have been assigned to complete a D/C Summary on this account. I was not involved in the patient management Thi Massey NP (V[place]tein) Feb 05, 2017 09:41
--- NOTE | 2017-02-05 19:15 | Discharge Summary 2 SIG ---
DATE OF ADMISSION: 02/02/2017 DATE OF DISCHARGE: 02/03/2017 REASON FOR ADMISSION: 56-year-old male with history of diabetes, presented to emergency room with left-sided chest pain. In the emergency department, EKG revealed normal sinus rhythm. Troponin was negative. The patient also noted to have hyponatremia with sodium -122. Blood sugar was stable. The patient was admitted for further management. ADMITTING DIAGNOSES: 1. Chest pain 2. Rule out acute coronary syndrome. 3. Acute hyponatremia. HOSPITAL STAY: The patient was admitted to telemetry floor. Serial troponin were negative. EKG showed no acute ischemic changes. Therefore, the patient was ruled out for acute MA. Echocardiogram revealed ejection fracture of 60% to 65% with right ventricular systolic pressure of 22. Borderline mild left ventricular hypertrophy. Chest x-ray revealed no acute cardiopulmonary pathology. The patient undergone infusion of normal saline and sodium up to 131 prior to discharge. DVT and GI prophylaxes provided. Aspirin continued. Blood sugar was managed with sliding scale of insulin. Chest pain resolved. No shortness of breath. The patient was cleared for discharge and follow up with primary medical doctor. Due to the rapid and unexpected improvement in the patient's condition, the patient was discharged in one day. FINAL DIAGNOSES: 1. Atypical chest pain 2. Acute hyponatremia, improved. 3. Diabetes mellitus. DISCHARGE INSTRUCTIONS: The patient was discharged home. Follow up with the primary medical doctor. DISCHARGE MEDICATIONS: See medication reconciliation list. Yamila Vargas M.D. I have been assigned to dictate discharge summary on this account and I was not involved in the patient's management. Thi Olmedoartis N.P. DR: SCHUYLER JOB#: [id number] CC: TIMO
== END 2017-02-03 18:40 | disposition home or self-care (01) | DRG 313 ==
LOC: EMR 17:50 → 2E 20:33 → EDBEDREQ 22:16 → 2E 23:06
DX: R07.89 Other chest pain (principal); E87.1 Hypo-osmolality and hyponatremia; E11.9 Type 2 diabetes mellitus without complications; F41.9 Anxiety disorder, unspecified; M25.572 Pain in left ankle and joints of left foot
CPT/HCPCS: 36415; 71010; 80048; 80053; 80061; 80300; 81003; 82550; 82962; 83036; 83880; 84300; 84443; 84484; 84550; 85025; 85610; 85730; 93005; 93306; 99285; J1815; J2405

== ENCOUNTER 2017-04-18 20:49 | Inpatient (IN) | payer SELFPAY ==
[~2017-04-18] VITALS: Ht 167.6 cm; Wt 74.8 kg
[2017-04-18 21:00] VITALS: BP 124/72
--- NOTE | 2017-04-18 21:12 | Emergency Room Report ---
History of Present Illness General Chief Complaint: Vomiting Source: Patient Present Illness HPI Is a 57-year-old male with a history of diabetes. He presents with chief complaint abdominal pain with vomiting for the last week. Unable to keep anything down. Worse the last 2 days. Pain is 9/10. Diffuse in nature. No diarrhea. Vomiting is nonbloody nonbilious. Denies any other complaint Allergies: Coded Allergies: No Known Allergies (Unverified , 10/19/16) Patient History Past Medical History: see triage record, old chart reviewed, DM Past Surgical History: other Pertinent Family History: none Social History: Denies: smoking, alcohol use, drug use Immunizations: other Reviewed Nursing Documentation: PMH: Agreed, PSxH: Agreed Nursing Documentation-PMH Past Medical History: No Stated History Hx Cardiac Problems: Yes Hx Hypertension: Yes Hx Diabetes: Yes Hx Cancer: No Hx Gastrointestinal Problems: No Hx Neurological Problems: Yes Hx Cerebrovascular Accident: Yes Hx Headaches: Yes Review of Systems Eye: Denies: eye pain, blurred vision ENT: Denies: ear pain, nose congestion, throat swelling Respiratory: Denies: cough, shortness of breath Cardiovascular: Denies: chest pain, palpitations Gastrointestinal: Reports: abdominal pain, nausea, vomiting, Denies: diarrhea Musculoskeletal: Denies: back pain, joint pain Skin: Denies: rash Neurological: Reports: headache, Denies: numbness Endocrine: Denies: increased thirst, increased urine Hematologic/Lymphatic: Denies: easy bruising All Other Systems: negative except mentioned in HPI Physical Exam Vital Signs Date Time Temp Pulse Resp B/P (MAP) Pulse Ox O2 Delivery O2 Flow Rate FiO2 04/18/17 20:46 98.1 76 18 146/76 100 Room Air vitals unremarkable Sp02 EP Interpretation: reviewed, normal General Appearance: well appearing, no apparent distress, alert Head: normocephalic, atraumatic Eyes: bilateral eye PERRL, bilateral eye EOMI ENT: hearing grossly normal, normal pharynx Neck: full range of motion, supple, no meningismus Respiratory: chest non-tender, lungs clear, normal breath sounds Cardiovascular #1: regular rate, rhythm, no murmur Gastrointestinal: non tender, no mass, no organomegaly, no bruit, non-distended , abnormal bowel sounds - Hypoactive Musculoskeletal: back normal, gait/station normal, normal range of motion Psychiatric: mood/affect normal Skin: warm/dry Medical Decision Making Diagnostic Impression: Primary Impression: Hyponatremia Additional Impressions: Abdominal pain Qualified Codes: R10.13 - Epigastric pain Headache Qualified Codes: R51 - Headache Vomiting Qualified Codes: R11.2 - Nausea with vomiting, unspecified ER Course This patient presents with abdominal pain and vomiting. Also with headache. His sodium is very low. Lower than his last to admission. IV fluid given. CT scan unremarkable. He has no pain in the right lower caught her it. Most of his pain is very mild in the epigastric area. I do not suspect acute abdomen or appendicitis. Will admit to telemetry. Lab Results Impression labs with hyponatremia EKG Diagnostic Results Rate: normal Rhythm: NSR ST Segments: no acute changes Rhythm Strip Diag. Results Rhythm Strip Time: 22:56 EP Interpretation: yes Rate: 68 Rhythm: NSR, no PVC's, no ectopy CT/MRI/US Diagnostic Results CT/MRI/US Diagnostic Results #1: Imaging Test Ordered: CT abd/pelvis Impression Read by radiologist: prominent appendiceal tip. Moderate colonic stool. CT/MRI/US Diagnostic Results #2: Imaging Test Ordered: CT head Impression read by radiologist. negative. Last Vital Signs Date Time Temp Pulse Resp B/P (MAP) Pulse Ox O2 Delivery O2 Flow Rate FiO2 04/18/17 20:46 98.1 76 18 146/76 100 Room Air Status: improved Disposition: ADMITTED INPATIENT Condition: Serious BRISA ALVAREZ M.D. Apr 18, 2017 21:12
[2017-04-18] MEDS ORDERED: Morphine Sulfate 4mg/ml Inj IVP ONE (21:15)
[2017-04-18] MEDS ORDERED: Ketorolac 30mg Inj IV ONE (22:00)
[2017-04-18 22:05] VITALS: BP 132/72
[2017-04-18 22:21] LABS: APPEARANCE,URINE CLEAR; KETONES,URINE 1+ (NEGATIVE); LEUKOCYTE ESTERASE ,URINE NEGATIVE (NEGATIVE); NITRITE,URINE NEGATIVE (NEGATIVE); PH,URINE 8 (4.5-8.0); PROTEIN,URINE NEGATIVE (NEGATIVE); UROBILINOGEN,URINE NORMAL MG/DL (0.0-1.0)
[2017-04-18 22:28] LABS: BASOPHILS % (AUTO) 2.1 % (0.0-2.0); EOSINOPHILS % (AUTO) 6.3 % (0.0-3.0); LYMPHOCYTES % (AUTO) 32.8 % (20.0-45.0); MEAN CORPUSCULAR HEMOGLOBIN 26.9 PG (27.0-31.0); MEAN CORPUSCULAR HGB CONC 32.2 G/DL (32.0-36.0); MEAN CORPUSCULAR VOLUME 84 FL (80-99); MEAN PLATELET VOLUME 4.8 FL (6.5-10.1); MONOCYTES % (AUTO) 11.6 % (1.0-10.0); NEUTROPHILS % (AUTO) 47.2 % (45.0-75.0); PLATELET COUNT 318 K/UL (150-450); RED BLOOD COUNT 4.67 M/UL (4.70-6.10); RED CELL DISTRIBUTION WIDTH 11.7 % (11.6-14.8)
[2017-04-18 22:37] LABS: ALANINE AMINOTRANSFERASE 24 U/L (12-78); ALBUMIN/GLOBULIN RATIO 1.1 (1.0-2.7); ANION GAP 8 mmol/L (5-15); ASPARTATE AMINO TRANSFERASE 28 U/L (15-37); CALCIUM 8.2 MG/DL (8.5-10.1); CARBON DIOXIDE 25 MMOL/L (21-32); CHLORIDE 86 MMOL/L (98-107); CREATININE 0.8 MG/DL (0.55-1.30); GLOMERULAR FILTRATION RATE > 60 mL/min (>60); LIPASE 112 U/L (73-393); POTASSIUM 3.2 MMOL/L (3.5-5.1); TOTAL PROTEIN 6.9 G/DL (6.4-8.2)
[2017-04-18 22:41] LABS: SODIUM 118 MMOL/L (136-145)
[2017-04-18 23:09] VITALS: BP 128/71
[2017-04-19] VITALS (7 sets, daily range): BP systolic 106–142; BP diastolic 63–87
[2017-04-19] MEDS ORDERED: Miralax 17gm pkt ORAL PRN ×2 (05:45→16:00)
[2017-04-19] MEDS ORDERED: Ketorolac 30mg Inj IV PRN (05:45)
[2017-04-19] MEDS ORDERED: Mylanta II UD 30ml ORAL PRN ×2 (05:45→16:00)
[2017-04-19] MEDS ORDERED: Nitroglycerin Subl 0.4mg tab SL PRN ×2 (05:45→15:45)
[2017-04-19] MEDS: NovoLOG Insulin Flexpen SUBQ SCH ×4 (06:30→20:19)
--- NOTE | 2017-04-19 07:47 | Consultation ---
History of Present Illness General Date patient seen: Apr 19, 2017 Chief Complaint: Vomiting Reason for Consultation: inpatient management Present Illness HPI 57-year-old male with a history of diabetes presented with chief complaint abdominal pain with vomiting for the last week. Unable to keep anything down. Worse the last 2 days. Pain is 9/10. Diffuse in nature. No diarrhea. Vomiting is nonbloody nonbilious. His Na was 118. He is admitted to control his symptoms and work up his hyponatremia. Allergies: Coded Allergies: No Known Allergies (Unverified , 10/19/16) Medication History Scheduled Bacitracin (Bacitracin), 1 APPLIC TOPIC BID Metformin Hcl* (Metformin Hcl*), 500 MG ORAL TWICE A DAY No Known Medications* (NKM - No Known Medications*), 0 ., (Reported) Scheduled PRN Ibuprofen* (Motrin*), 600 MG ORAL Q6H PRN for For Pain Tramadol Hcl* (Ultram*), 50 MG ORAL Q6H PRN for For Pain Patient History Healthcare decision maker Antonio Hernandez (son) Resuscitation status Full Code Advanced Directive on File No Past Medical/Surgical History Past Medical/Surgical History: (1) Diabetes Review of Systems Constitutional: Reports: no symptoms ENT: Reports: no symptoms Physical Exam General Appearance: WD/WN Lines, tubes and drains: peripheral HEENT: normocephalic, atraumatic Neck: non-tender, normal alignment Respiratory/Chest: chest wall non-tender, normal breath sounds Breasts: no masses Cardiovascular/Chest: normal peripheral pulses, regular rhythm Abdomen: normal bowel sounds, hyperactive bowel sounds Last 24 Hour Vital Signs Date Time Temp Pulse Resp B/P (MAP) Pulse Ox O2 Delivery O2 Flow Rate FiO2 04/19/17 04:00 97.0 60 20 134/84 100 Room Air 04/19/17 04:00 97.0 60 20 134/84 100 Room Air 04/19/17 03:45 62 04/19/17 01:13 65 04/19/17 01:00 96.1 63 20 137/87 99 Room Air 04/19/17 00:40 98.1 81 24 123/71 98 Room Air 04/19/17 00:05 98.1 81 24 123/71 98 Room Air 04/18/17 23:09 98.6 86 24 128/71 98 Room Air 04/18/17 22:43 98.0 04/18/17 22:05 98.2 86 24 132/72 98 Room Air 04/18/17 21:56 98.0 04/18/17 21:00 98.2 83 26 124/72 100 Room Air 04/18/17 20:46 98.1 76 18 146/76 100 Room Air Laboratory Tests Test 04/18/17 22:00 04/18/17 22:10 White Blood Count 5.0 K/UL (4.8-10.8) Red Blood Count 4.67 M/UL (4.70-6.10) L Hemoglobin 12.6 G/DL (14.2-18.0) L Hematocrit 39.0 % (42.0-52.0) L Mean Corpuscular Volume 84 FL (80-99) Mean Corpuscular Hemoglobin 26.9 PG (27.0-31.0) L Mean Corpuscular Hemoglobin Concent 32.2 G/DL (32.0-36.0) Red Cell Distribution Width 11.7 % (11.6-14.8) Platelet Count 318 K/UL (150-450) Mean Platelet Volume 4.8 FL (6.5-10.1) L Neutrophils (%) (Auto) 47.2 % (45.0-75.0) Lymphocytes (%) (Auto) 32.8 % (20.0-45.0) Monocytes (%) (Auto) 11.6 % (1.0-10.0) H Eosinophils (%) (Auto) 6.3 % (0.0-3.0) H Basophils (%) (Auto) 2.1 % (0.0-2.0) H Sodium Level 118 MMOL/L (136-145) *L Potassium Level 3.2 MMOL/L (3.5-5.1) L Chloride Level 86 MMOL/L (98-107) L Carbon Dioxide Level 25 MMOL/L (21-32) Anion Gap 8 mmol/L (5-15) Blood Urea Nitrogen 7 mg/dL (7-18) Creatinine 0.8 MG/DL (0.55-1.30) Estimat Glomerular Filtration Rate > 60 mL/min (>60) Glucose Level 115 MG/DL (74-106) H Calcium Level 8.2 MG/DL (8.5-10.1) L Total Bilirubin 0.6 MG/DL (0.2-1.0) Aspartate Amino Transf (AST/SGOT) 28 U/L (15-37) Alanine Aminotransferase (ALT/SGPT) 24 U/L (12-78) Alkaline Phosphatase 81 U/L (46-116) Total Protein 6.9 G/DL (6.4-8.2) Albumin 3.6 G/DL (3.4-5.0) Globulin 3.3 g/dL Albumin/Globulin Ratio 1.1 (1.0-2.7) Lipase 112 U/L (73-393) Urine Color Pale yellow Urine Appearance Clear Urine pH 8 (4.5-8.0) Urine Specific [place] 1.010 (1.005-1.035) Urine Protein Negative (NEGATIVE) Urine Glucose (UA) Negative (NEGATIVE) Urine Ketones 1+ (NEGATIVE) H Urine Occult Blood Negative (NEGATIVE) Urine Nitrite Negative (NEGATIVE) Urine Bilirubin Negative (NEGATIVE) Urine Urobilinogen Normal MG/DL (0.0-1.0) Urine Leukocyte Esterase Negative (NEGATIVE) Height (Feet): 5 Height (Inches): 6.00 Weight (Pounds): 165 Medications Current Medications Medications (Trade) Dose Ordered Sig/Nancy Route PRN Reason Start Time Stop Time Status Last Admin Dose Admin Acetaminophen (Tylenol) 650 mg Q4H PRN ORAL fever 04/19/17 05:45 05/19/17 05:44 Al Hydroxide/Mg Hydroxide (Mylanta II) 30 ml Q6H PRN ORAL dyspepsia 04/19/17 05:45 05/19/17 05:44 Dextrose (Dextrose 50%) STAT PRN IV Hypoglycemia 04/19/17 05:45 05/19/17 05:44 Diphenhydramine HCl (Benadryl) 25 mg Q6H PRN ORAL Itching/Pruritis 04/19/17 05:45 05/19/17 05:44 Heparin Sodium (Porcine) (Heparin 5000 units/ml) 5,000 units EVERY 12 HOURS SUBQ 04/19/17 09:00 05/19/17 08:59 Insulin Aspart (NovoLOG) BEFORE MEALS AND HS SUBQ 04/19/17 06:30 05/19/17 06:29 Ketorolac Tromethamine (Toradol 30mg) 30 mg Q6H PRN IV moderate pian 4-6 04/19/17 05:45 04/24/17 05:44 Nitroglycerin (Ntg) 0.4 mg Q5M X 3 DOSES PRN SL Prn Chest Pain 04/19/17 05:45 05/19/17 05:44 Ondansetron HCl (Zofran) 4 mg Q6H PRN IVP Nausea & Vomiting 04/19/17 05:45 05/19/17 05:44 Polyethylene Glycol (Miralax) 17 gm HSPRN PRN ORAL Constipation 04/19/17 05:45 05/19/17 05:44 Sodium Chloride 1,000 ml @ 150 mls/hr Q6H40M IV 04/19/17 05:40 05/19/17 05:39 04/19/17 06:30 Temazepam (Restoril) 15 mg HSPRN PRN ORAL Insomnia 04/19/17 05:45 04/26/17 05:44 Assessment/Plan Problem List: (1) Hyponatremia ICD Codes: E87.1 - Hypo-osmolality and hyponatremia SNOMED: 89087556 (2) Vomiting ICD Codes: R11.10 - Vomiting, unspecified SNOMED: 946175840 Qualifiers: Qualified Codes: R11.2 - Nausea with vomiting, unspecified (3) Abdominal pain ICD Codes: R10.9 - Unspecified abdominal pain SNOMED: 83740846 Qualifiers: Qualified Codes: R10.13 - Epigastric pain (4) Diabetes ICD Codes: E11.9 - Type 2 diabetes mellitus without complications SNOMED: [id number] Assessment/Plan ? etiology of Nausea and vomiting Hyponatremia could be secondary to Nausea NS sliding scale MOISES LUBIN Apr 19, 2017 07:47
[2017-04-19] MEDS ORDERED: Heparin 5000 units/ml inj SUBQ SCH (09:00)
--- NOTE | 2017-04-19 09:20 | Diagnostic Imaging Report ---
Indication: Headache, pain Comparison: CT brain 10/21/2016 Technique: Contiguous helical CT images through the brain was performed without intravenous contrast. Axial, coronal and sagittal reconstructions were reformatted. CT dose: Total DLP 1432 mGycm, CTDI volume 70.4 mGy Findings: There is no acute intracranial hemorrhage or infarct. No mass, mass effect or midline shift is identified. Ventricles and sulci are within normal limits. No extra-axial fluid collections are seen. Bony calvarium is intact. Mastoid air cells and visualized paranasal sinuses are clear. Impression: No acute intracranial abnormalities. Change from prior exam 10/21/[address] scanner at [facility] is accredited by the [employer] and the scans are performed using protocols designed to limit radiation exposure to as low as reasonably achievable to attain images of sufficient resolution adequate for diagnostic evaluation.
--- NOTE | 2017-04-19 09:29 | Diagnostic Imaging Report ---
Indication: Abdominal pain, nausea Comparison: None Technique: Contiguous helical CT images through the abdomen and pelvis was performed without intravenous or oral contrast. Axial, coronal and sagittal reconstructions were reformatted. CT Dose: Total DLP: 868 mGycm; Total CTDI volume 15.7 Findings: Exam is limited due to lack of intravenous and oral contrast. Liver is normal on this noncontrast examination. The gallbladder is mildly distended. No evidence of radiopaque gallstones. Spleen is normal. Pancreas is normal. Adrenal glands and kidneys are normal. No hydronephrosis. No urinary tract stones. No evidence of bowel obstruction. No dilated loops of bowel, free fluid or free air is seen. No bowel wall thickening. The appendix is somewhat prominent measuring up to 12 mm in diameter. There is questionable possible minimal stranding near the tip which may be chronic, lesion, versus appendicitis. Please correlate clinically. Urinary bladder is normal. No significant lymphadenopathy. Mild atherosclerotic calcifications are noted. No acute osseous abnormalities. Lung bases are clear. Impression: Mildly prominent appendiceal tip of (12 mm) with questionable possible minimal stranding which may be chronic, lesion, versus appendicitis. Please correlate clinically. No free fluid or free air.
--- NOTE | 2017-04-19 13:38 | General Progress Note ---
Progress Note Progress Note [id number] full note dictated PETROS MAC Apr 19, 2017 13:38
[2017-04-19] MEDS: Ketorolac 30mg Inj IV PRN (18:06)
[2017-04-19] MEDS: Heparin 5000 units/ml inj SUBQ SCH (20:23)
--- NOTE | 2017-04-19 20:45 | History and Physical Report ---
DATE OF ADMISSION: 04/18/2017 TIME SEEN: At 8 a.m. CONSULTANTS: 1. Carlos Alberto D.O. 2. Sohan Martin M.D. 3. Rodger Rubio M.D. 4. Candi Corral M.D. CHIEF COMPLAINT: Abdominal pain, headache, vomiting, and hyponatremia. BRIEF HISTORY: A 57-year-old male who lives at home, presented to [facility] last night with increased nausea and vomiting for whole day, and abdominal pain, was found to be hyponatremic at 118. The patient was admitted to telemetry for further care. Currently, calm and feeling little better in bed. No complaint. PAST MEDICAL HISTORY: None. PAST SURGICAL HISTORY: None. MEDICATIONS: Include heparin, NovoLog, Tylenol, Restoril, Zofran, MiraLAX, Benadryl, Mylanta, nitroglycerine, and Toradol. ALLERGIES: Denies. SOCIAL HISTORY: No smoking. No alcohol. No intravenous drug abuse. FAMILY HISTORY: Noncontributory. REVIEW OF SYSTEMS: No chest pain. No shortness of breath. No nausea, vomiting, or diarrhea. PHYSICAL EXAMINATION: GENERAL: Calm in bed, oriented x3, in no acute distress. VITAL SIGNS: Show temperature is 97 degrees, pulse 60, respirations 20, and blood pressure 134/84. CARDIOVASCULAR: No murmur. LUNGS: Distant and clear. ABDOMEN: Bowel sounds are positive. Nontender and nondistended. EXTREMITIES: No cyanosis, clubbing, or edema. NEUROLOGICAL: The patient moves all extremities slightly weak. LABORATORY DATA: Show hemoglobin 12.6, otherwise CBC is normal. BMP shows sodium 118, potassium 3.2, chloride 86, and glucose 115. Otherwise, BMP is normal. Urinalysis shows 1+ ketone. ASSESSMENT: 1. Hyponatremia. 2. Abdominal pain. 3. Vomiting. 4. Headache. 5. Anemia. PLAN: 1. Continue premedications. 2. IV fluids. 3. Antiemetic as needed. 4. Pain control. 5. Dietary followup. 6. CBC and BMP in the morning. 7. Dr. Martin, Dr. Rubio, and Dr. Corral to consult. Carlos Alberto D.O. DR: JYOTHI JOB#: [id number] CC:
--- NOTE | 2017-04-19 23:15 | Consultation ---
DATE OF CONSULTATION: 04/19/2017 NEPHROLOGY CONSULTATION CONSULTING PHYSICIAN: Candi Corral M.D. REFERRING PHYSICIAN: Carlos Alberto D.O. REASON FOR CONSULTATION: Severe hyponatremia. HISTORY OF PRESENT ILLNESS: The patient is a 57-year-old male with past medical history significant for history of diabetes and hypertension. He presents to the emergency room complaining of severe headache and intractable nausea and vomiting for one week. Upon arrival in the ER, the patient was found to have reasonable blood pressure of 146/76. He was mildly tachycardic at 83. He was found to have a sodium of 118. He also complained of muscle spasm and cramps all over his extremity. Consequently, the patient was admitted in the hospital. I was called for management of acute renal disease and electrolyte imbalance. PAST MEDICAL HISTORY: 1. Diabetes. 2. Hypertension. PAST SURGICAL HISTORY: None. ALLERGIES: No known drug allergies. MEDICATIONS: Home medications includin. Bacitracin. 2. Metformin. 3. Ibuprofen. 4. Tramadol. REVIEW OF SYSTEMS: GENERAL: He complained of generalized weakness. Denied any fever, chills, or night sweats. Complained of severe headache, which is a pulsatile headache, was most likely entire his head, but today is mostly in the back of his head, was associated with nausea and vomiting. There was no relieving or aggravating factor. PULMONARY: Denies any shortness of breath, cough, or sputum. CARDIOVASCULAR: Denies any chest pain or palpitation. GASTROINTESTINAL: Complained of nausea and vomiting. No melena. No hematemesis. No hematochezia. GENITOURINARY: Denies any dysuria, frequency, or hematuria. PHYSICAL EXAMINATION: VITAL SIGNS: The patient had temperature of 97, blood pressure of 134/84, and pulse rate of 60. HEAD AND NECK: No JVP. No LAD. No thyromegaly. Extraocular movements intact. Pupils are reactive to light and accommodation. LUNGS: Clear to auscultation. CARDIAC: Regular rate and rhythm. S1 and S2. No murmur. No rub. ABDOMEN: Soft, nontender, and nondistended. EXTREMITIES: Trace edema. No clubbing. No cyanosis. LABORATORY AND DIAGNOSTIC DATA: The patient had a CT of the head, which was negative for any intracranial abnormality. CT of the abdomen was done, which showed mild prominent appendiceal tip of 12 mm, questionable possible stranding, which may be chronic lesion versus appendicitis. Lab values revealed WBC count of 5, hemoglobin of 12.6, hematocrit of 39, and platelet count of 318,000. Chemistry revealed sodium of 118, potassium 3.2, chloride 86, bicarbonate 25, BUN of 7, creatinine of 0.8, glucose of 115, and calcium of 8.5. Normal liver function tests. ASSESSMENT: 1. Hypovolemic hyponatremia. 2. Hypokalemia. 3. Intractable nausea and vomiting, which may cause antidiuretic hormone secretion. PLAN: Plan for the patient is to obtain a random urine sodium and creatinine to calculate fractional excretion of sodium. Check urine osmolality and serum osmolality. I would replace the potassium. I would check stat repeat of sodium at this point. I would place the patient on free water restriction. I will check the magnesium level. I would monitor the patient very closely in the monitored bed with possible chemistry of every four hours. I would check the vitamin D for evaluation of hypocalcemia. Again, I would like to thank, Dr. Carlos Alberto, for allowing me to participate in the care of this patient. Candi Corral M.D. DR: DAPHNEY JOB#: [id number] CC:
[2017-04-20] VITALS: BP 105/57
[2017-04-20 04:00] VITALS: BP 120/68
[2017-04-20] MEDS: Ketorolac 30mg Inj IV PRN ×2 (06:25→13:47)
[2017-04-20] MEDS: NovoLOG Insulin Flexpen SUBQ SCH ×4 (06:25→21:36)
--- NOTE | 2017-04-20 06:36 | General Progress Note ---
Assessment/Plan Problem List: (1) Hyponatremia ICD Codes: E87.1 - Hypo-osmolality and hyponatremia SNOMED: 64745081 (2) Diabetes ICD Codes: E11.9 - Type 2 diabetes mellitus without complications SNOMED: 42341482 (3) Vomiting ICD Codes: R11.10 - Vomiting, unspecified SNOMED: 495749072 Qualifiers: Qualified Codes: R11.2 - Nausea with vomiting, unspecified (4) Abdominal pain ICD Codes: R10.9 - Unspecified abdominal pain SNOMED: 33326745 Qualifiers: Qualified Codes: R10.13 - Epigastric pain (5) Headache ICD Codes: R51 - Headache SNOMED: 03825600 Qualifiers: Qualified Codes: R51 - Headache Assessment/Plan fu with nephrology for hyponatremia fu labs hold GI procedures for now Subjective ROS Limited/Unobtainable: Yes Allergies: Coded Allergies: No Known Allergies (Unverified , 10/19/16) Subjective feeling better Objective Last 24 Hour Vital Signs Date Time Temp Pulse Resp B/P (MAP) Pulse Ox O2 Delivery O2 Flow Rate FiO2 04/20/17 04:00 97.7 66 18 120/68 99 Room Air 04/20/17 00:00 97.7 74 20 105/57 100 Room Air 04/19/17 20:30 97.9 70 19 106/63 98 Room Air 04/19/17 18:36 97.5 04/19/17 16:00 97.5 74 18 142/85 98 Room Air 04/19/17 12:00 66 04/19/17 12:00 97.5 68 18 132/75 99 Room Air 04/19/17 08:00 97.9 66 18 123/75 99 Room Air 04/19/17 08:00 70 Laboratory Tests 04/19/17 14:32: Sodium Level 122L, Osmolality 253L 04/19/17 17:45: Sodium Level 123L 04/19/17 20:10: Urine Eosinophils None seen, Urine Osmolality 276L, Urine Random Creatinine [ Pending], Urine Random Microalbumin [Pending], Urine Random Total Protein 1, Urine Random Sodium 86, Urine Creatinine 30.9, Urine Microalbumin/Creatinine Ratio [Pending] Height (Feet): 5 Height (Inches): 6.00 Weight (Pounds): 165 General Appearance: alert EENT: normal ENT inspection Neck: supple Cardiovascular: normal rate Respiratory/Chest: lungs clear Abdomen: normal bowel sounds, non tender, soft Extremities: non-tender MARY ARAGON Apr 20, 2017 06:36
[2017-04-20 08:23] LABS: PROTHROMBIN TIME 10.7 SEC (9.30-11.50)
[2017-04-20 08:25] LABS: BASOPHILS % (AUTO) 2.9 % (0.0-2.0); EOSINOPHILS % (AUTO) 5.9 % (0.0-3.0); LYMPHOCYTES % (AUTO) 45.3 % (20.0-45.0); MEAN CORPUSCULAR HGB CONC 34.2 G/DL (32.0-36.0); MEAN CORPUSCULAR VOLUME 85 FL (80-99); MEAN PLATELET VOLUME 5.1 FL (6.5-10.1); NEUTROPHILS % (AUTO) 35.9 % (45.0-75.0); PLATELET COUNT 337 K/UL (150-450); RED BLOOD COUNT 4.47 M/UL (4.70-6.10); RED CELL DISTRIBUTION WIDTH 12.4 % (11.6-14.8); WHITE BLOOD COUNT 3.6 K/UL (4.8-10.8)
[2017-04-20 08:35] LABS: CRP QUANT < 0.4 mg/dL (0.00-0.90); MAGNESIUM 1.9 MG/DL (1.8-2.4); PHOSPHORUS 3.4 MG/DL (2.5-4.9)
[2017-04-20] MEDS: Heparin 5000 units/ml inj SUBQ SCH ×2 (08:41→21:39)
--- NOTE | 2017-04-20 08:41 | General Progress Note ---
Assessment/Plan Problem List: (1) Abdominal pain ICD Codes: R10.9 - Unspecified abdominal pain SNOMED: 25745826 Qualifiers: Qualified Codes: R10.13 - Epigastric pain (2) Vomiting ICD Codes: R11.10 - Vomiting, unspecified SNOMED: 288531111 Qualifiers: Qualified Codes: R11.2 - Nausea with vomiting, unspecified (3) Diabetes ICD Codes: E11.9 - Type 2 diabetes mellitus without complications SNOMED: 11542334 (4) Hyponatremia ICD Codes: E87.1 - Hypo-osmolality and hyponatremia SNOMED: 43325485 Status: stable, progressing, tolerating diet Assessment/Plan diet f/u ivf gi neph f/u cbc bmp am dc plan if clear Subjective Constitutional: Reports: weakness Allergies: Coded Allergies: No Known Allergies (Unverified , 10/19/16) All Systems: reviewed and negative except above Subjective calm in bed Objective Last 24 Hour Vital Signs Date Time Temp Pulse Resp B/P (MAP) Pulse Ox O2 Delivery O2 Flow Rate FiO2 04/20/17 04:00 97.7 66 18 120/68 99 Room Air 04/20/17 00:00 97.7 74 20 105/57 100 Room Air 04/19/17 20:30 97.9 70 19 106/63 98 Room Air 04/19/17 18:36 97.5 04/19/17 16:00 97.5 74 18 142/85 98 Room Air 04/19/17 12:00 66 04/19/17 12:00 97.5 68 18 132/75 99 Room Air Laboratory Tests 04/19/17 14:32: Sodium Level 122L, Osmolality 253L 04/19/17 17:45: Sodium Level 123L 04/19/17 20:10: Urine Eosinophils None seen, Urine Osmolality 276L, Urine Random Creatinine [ Pending], Urine Random Microalbumin [Pending], Urine Random Total Protein 1, Urine Random Sodium 86, Urine Creatinine 30.9, Urine Microalbumin/Creatinine Ratio [Pending] 04/20/17 07:27: Sodium Level [Pending], White Blood Count 3.6L, Red Blood Count 4.47L, Hemoglobin 13.0L, Hematocrit 38.0L, Mean Corpuscular Volume 85, Mean Corpuscular Hemoglobin 29.0, Mean Corpuscular Hemoglobin Concent 34.2, Red Cell Distribution Width 12.4, Platelet Count 337, Mean Platelet Volume 5.1L, Neutrophils (%) (Auto) 35.9L, Lymphocytes (%) (Auto) 45.3H, Monocytes (%) (Auto ) 10.0, Eosinophils (%) (Auto) 5.9H, Basophils (%) (Auto) 2.9H, Erythrocyte Sedimentation Rate [Pending], Prothrombin Time 10.7, Prothromb Time International Ratio 1.0, Activated Partial Thromboplast Time 34H, Potassium Level [Pending], Chloride Level [Pending], Carbon Dioxide Level [Pending], Blood Urea Nitrogen [Pending], Creatinine [Pending], Estimat Glomerular Filtration Rate [Pending], Glucose Level [Pending], Hemoglobin A1c [Pending], Calcium Level [Pending], Phosphorus Level 3.4, Magnesium Level 1.9, Total Bilirubin [Pending], Aspartate Amino Transf (AST/SGOT) [Pending], Alanine Aminotransferase (ALT/SGPT) [Pending], Alkaline Phosphatase [Pending], C- Reactive Protein, Quantitative < 0.4, Total Protein [Pending], Albumin [Pending] , Globulin [Pending], Amylase Level [Pending], Lipase [Pending], Thyroid Stimulating Hormone (TSH) [Pending] Height (Feet): 5 Height (Inches): 6.00 Weight (Pounds): 165 General Appearance: alert EENT: normal ENT inspection Neck: normal alignment Cardiovascular: normal peripheral pulses, normal rate, regular rhythm Respiratory/Chest: chest wall non-tender, lungs clear, normal breath sounds Abdomen: normal bowel sounds, non tender, soft Extremities: normal inspection Edema: no edema noted Arm (L), no edema noted Arm (R), no edema noted Leg (L), no edema noted Leg (R), no edema noted Pedal (L), no edema noted Pedal (R), no edema noted Generalized Neurologic: responsive, motor weakness Skin: normal pigmentation, warm/dry ARMANDO WELLS Apr 20, 2017 08:41
[2017-04-20 08:56] LABS: HEMOGLOBIN A1C 6.1 % (4.3-6.0)
[2017-04-20 09:32] LABS: AMYLASE 29 U/L (25-115); ANION GAP 10 mmol/L (5-15); ASPARTATE AMINO TRANSFERASE 27 U/L (15-37); CALCIUM 8.4 MG/DL (8.5-10.1); CARBON DIOXIDE 22 MMOL/L (21-32); CHLORIDE 95 MMOL/L (98-107); CREATININE 0.8 MG/DL (0.55-1.30); GLOMERULAR FILTRATION RATE > 60 mL/min (>60); LIPASE 102 U/L (73-393); POTASSIUM 4.4 MMOL/L (3.5-5.1); SODIUM 127 MMOL/L (136-145)
[2017-04-20 10:03] LABS: ALANINE AMINOTRANSFERASE 23 U/L (12-78); THYROID STIMULATING HORMONE 3.109 uiU/mL (0.360-3.740); TOTAL PROTEIN 6.7 G/DL (6.4-8.2)
[2017-04-20 10:06] LABS: ALBUMIN/GLOBULIN RATIO 1.1 (1.0-2.7)
--- NOTE | 2017-04-20 13:46 | Nephrology Progress Note ---
Assessment/Plan Assessment 1. Hypovolemic hyponatremia. 2. Hypokalemia. 3. Intractable nausea and vomiting, which may cause antidiuretic hormone secretion. 4.headache Plan plan to continue ns.9 free water restriction stop NSAID Replace electrolyte as need it Subjective Constitutional: Reports: malaise, weakness HEENT: Reports: other Genitourinary: Reports: no symptoms Neurologic/Psychiatric: Reports: no symptoms Subjective alert and awake muscle cramp has resolved c/o tinnitus Objective Objective Last 24 Hour Vital Signs Date Time Temp Pulse Resp B/P (MAP) Pulse Ox O2 Delivery O2 Flow Rate FiO2 04/20/17 04:00 97.7 66 18 120/68 99 Room Air 04/20/17 00:00 97.7 74 20 105/57 100 Room Air 04/19/17 20:30 97.9 70 19 106/63 98 Room Air 04/19/17 18:36 97.5 04/19/17 16:00 97.5 74 18 142/85 98 Room Air Intake and Output 04/20/17 04/21/17 19:00 07:00 Intake Total 750 ml Balance 750 ml Intake IV Total 750 ml Laboratory Tests 04/19/17 14:32: Sodium Level 122L, Osmolality 253L 04/19/17 17:45: Sodium Level 123L 04/19/17 20:10: Urine Eosinophils None seen, Urine Osmolality 276L, Urine Random Creatinine [ Pending], Urine Random Microalbumin [Pending], Urine Random Total Protein 1, Urine Random Sodium 86, Urine Creatinine 30.9, Urine Microalbumin/Creatinine Ratio [Pending] 04/20/17 07:27: Sodium Level 127L, White Blood Count 3.6L, Red Blood Count 4.47L, Hemoglobin 13.0L, Hematocrit 38.0L, Mean Corpuscular Volume 85, Mean Corpuscular Hemoglobin 29.0, Mean Corpuscular Hemoglobin Concent 34.2, Red Cell Distribution Width 12.4, Platelet Count 337, Mean Platelet Volume 5.1L, Neutrophils (%) (Auto) 35.9L, Lymphocytes (%) (Auto) 45.3H, Monocytes (%) (Auto ) 10.0, Eosinophils (%) (Auto) 5.9H, Basophils (%) (Auto) 2.9H, Erythrocyte Sedimentation Rate 8, Prothrombin Time 10.7, Prothromb Time International Ratio 1.0, Activated Partial Thromboplast Time 34H, Potassium Level 4.4, Chloride Level 95L, Carbon Dioxide Level 22, Anion Gap 10, Blood Urea Nitrogen 6L, Creatinine 0.8, Estimat Glomerular Filtration Rate > 60, Glucose Level 80, Hemoglobin A1c 6.1H, Calcium Level 8.4L, Phosphorus Level 3.4, Magnesium Level 1.9, Total Bilirubin 0.3, Aspartate Amino Transf (AST/SGOT) 27, Alanine Aminotransferase (ALT/SGPT) 23, Alkaline Phosphatase 76, C-Reactive Protein, Quantitative < 0.4, Total Protein 6.7, Albumin 3.5, Globulin 3.2, Albumin/ Globulin Ratio 1.1, Amylase Level 29, Lipase 102, Thyroid Stimulating Hormone ( TSH) 3.109 Height (Feet): 5 Height (Inches): 6.00 Weight (Pounds): 165 Objective HEAD AND NECK: No JVP. No LAD. No thyromegaly. Extraocular movements intact. Pupils are reactive to light and accommodation. LUNGS: Clear to auscultation. CARDIAC: Regular rate and rhythm. S1 and S2. No murmur. No rub. ABDOMEN: Soft, nontender, and nondistended. EXTREMITIES: Trace edema. No clubbing. No cyanosis. PETROS MAC Apr 20, 2017 13:46
[2017-04-20 16:00] VITALS: BP 121/74
[2017-04-20] MEDS ORDERED: Norco 5mg/325mg tab ORAL PRN (17:45)
[2017-04-20 20:00] VITALS: BP 106/69
--- NOTE | 2017-04-20 21:20 | Pulmonology Progress Note ---
Assessment/Plan Problems: (1) Hyponatremia (2) Vomiting (3) Abdominal pain (4) Diabetes Assessment/Plan improving all notes reviewed Na better BS better dc planning Subjective ROS Limited/Unobtainable: No Constitutional: Reports: no symptoms HEENT: Repors: no symptoms Allergies: Coded Allergies: No Known Allergies (Unverified , 10/19/16) Objective Last 24 Hour Vital Signs Date Time Temp Pulse Resp B/P (MAP) Pulse Ox O2 Delivery O2 Flow Rate FiO2 04/20/17 20:00 97.7 59 20 106/69 98 Room Air 04/20/17 16:00 97.9 71 20 121/74 98 Room Air 04/20/17 04:00 97.7 66 18 120/68 99 Room Air 04/20/17 00:00 97.7 74 20 105/57 100 Room Air Intake and Output 04/20/17 04/21/17 19:00 07:00 Intake Total 2130 ml Output Total 300 ml Balance 1830 ml Intake Oral 480 ml IV Total 1650 ml Output Urine Total 300 ml # Voids 5 Objective General Appearance: WD/WN HEENT: normocephalic, atraumatic, PERRL Respiratory/Chest: chest wall non-tender, lungs clear Cardiovascular: no JVD Extremities: no cyanosis Skin: no rash Laboratory Tests 04/20/17 07:27: White Blood Count 3.6L, Red Blood Count 4.47L, Hemoglobin 13.0L, Hematocrit 38.0L, Mean Corpuscular Volume 85, Mean Corpuscular Hemoglobin 29.0, Mean Corpuscular Hemoglobin Concent 34.2, Red Cell Distribution Width 12.4, Platelet Count 337, Mean Platelet Volume 5.1L, Neutrophils (%) (Auto) 35.9L, Lymphocytes (%) (Auto) 45.3H, Monocytes (%) (Auto) 10.0, Eosinophils (%) (Auto) 5.9H, Basophils (%) (Auto) 2.9H, Erythrocyte Sedimentation Rate 8, Prothrombin Time 10.7, Prothromb Time International Ratio 1.0, Activated Partial Thromboplast Time 34H, Sodium Level 127L, Potassium Level 4.4, Chloride Level 95L, Carbon Dioxide Level 22, Anion Gap 10, Blood Urea Nitrogen 6L, Creatinine 0.8, Estimat Glomerular Filtration Rate > 60, Glucose Level 80, Hemoglobin A1c 6.1H, Calcium Level 8.4L, Phosphorus Level 3.4, Magnesium Level 1.9, Total Bilirubin 0.3, Aspartate Amino Transf (AST/SGOT) 27, Alanine Aminotransferase (ALT/SGPT) 23, Alkaline Phosphatase 76, C-Reactive Protein, Quantitative < 0.4, Total Protein 6.7, Albumin 3.5, Globulin 3.2, Albumin/Globulin Ratio 1.1, Amylase Level 29, Lipase 102, Thyroid Stimulating Hormone (TSH) 3.109 Current Medications Medications (Trade) Dose Ordered Sig/Nancy Route PRN Reason Start Time Stop Time Status Last Admin Dose Admin Acetaminophen (Tylenol) 650 mg Q4H PRN ORAL fever 04/19/17 16:00 05/19/17 15:59 Acetaminophen/ Hydrocodone Bitart ([place] 5/325) 1 tab Q4H PRN ORAL Moderate Pain (Pain Scale 4-6) 04/20/17 17:45 04/27/17 17:44 04/20/17 20:26 Al Hydroxide/Mg Hydroxide (Mylanta II) 30 ml Q6H PRN ORAL dyspepsia 04/19/17 16:00 05/19/17 15:59 04/19/17 20:19 Dextrose (Dextrose 50%) STAT PRN IV Hypoglycemia 04/19/17 16:00 05/19/17 15:59 Diphenhydramine HCl (Benadryl) 25 mg Q6H PRN ORAL Itching/Pruritis 04/19/17 16:00 05/19/17 15:59 Heparin Sodium (Porcine) (Heparin 5000 units/ml) 5,000 units EVERY 12 HOURS SUBQ 04/19/17 21:00 05/19/17 08:59 04/20/17 08:41 Insulin Aspart (NovoLOG) BEFORE MEALS AND HS SUBQ 04/19/17 16:30 05/19/17 06:29 04/20/17 16:32 Nitroglycerin (Ntg) 0.4 mg Q5M X 3 DOSES PRN SL Prn Chest Pain 04/19/17 15:45 05/19/17 05:44 Ondansetron HCl (Zofran) 4 mg Q6H PRN IVP Nausea & Vomiting 04/19/17 16:00 05/19/17 15:59 Polyethylene Glycol (Miralax) 17 gm HSPRN PRN ORAL Constipation 04/19/17 16:00 05/19/17 15:59 Sodium Chloride 1,000 ml @ 150 mls/hr Q6H40M IV 04/19/17 16:00 05/19/17 15:59 04/20/17 13:58 Temazepam (Restoril) 15 mg HSPRN PRN ORAL Insomnia 04/19/17 16:00 04/26/17 15:59 04/20/17 20:25 MOISES LUBIN Apr 20, 2017 21:20
[2017-04-21] VITALS: BP 109/71
[2017-04-21 04:45] VITALS: BP 115/61
[2017-04-21] MEDS: NovoLOG Insulin Flexpen SUBQ SCH ×3 (06:09→16:30)
[2017-04-21 07:11] LABS: BASOPHILS % (AUTO) 1.9 % (0.0-2.0); EOSINOPHILS % (AUTO) 4.2 % (0.0-3.0); LYMPHOCYTES % (AUTO) 36.2 % (20.0-45.0); MEAN CORPUSCULAR HEMOGLOBIN 29.1 PG (27.0-31.0); MEAN CORPUSCULAR HGB CONC 34.2 G/DL (32.0-36.0); MEAN CORPUSCULAR VOLUME 85 FL (80-99); MONOCYTES % (AUTO) 10.3 % (1.0-10.0); NEUTROPHILS % (AUTO) 47.5 % (45.0-75.0); PLATELET COUNT 332 K/UL (150-450); RED BLOOD COUNT 4.23 M/UL (4.70-6.10); RED CELL DISTRIBUTION WIDTH 12.6 % (11.6-14.8); WHITE BLOOD COUNT 4.5 K/UL (4.8-10.8)
[2017-04-21 07:41] LABS: ANION GAP 8 mmol/L (5-15); CALCIUM 8.2 MG/DL (8.5-10.1); CARBON DIOXIDE 21 MMOL/L (21-32); CHLORIDE 103 MMOL/L (98-107); CREATININE 0.8 MG/DL (0.55-1.30); GLOMERULAR FILTRATION RATE > 60 mL/min (>60); POTASSIUM 4.3 MMOL/L (3.5-5.1); SODIUM 132 MMOL/L (136-145)
[2017-04-21 08:00] VITALS: BP 112/65
--- NOTE | 2017-04-21 08:09 | Nephrology Progress Note ---
Assessment/Plan Assessment 1. Hypovolemic hyponatremia. 2. Hypokalemia. 3. Intractable nausea and vomiting, which may cause antidiuretic hormone secretion. 4.headache Plan plan to continue ns.9 free water restriction stop NSAID Replace electrolyte as need it Subjective Subjective alert and awake muscle cramp has resolved c/o tinnitus Objective Objective Last 24 Hour Vital Signs Date Time Temp Pulse Resp B/P (MAP) Pulse Ox O2 Delivery O2 Flow Rate FiO2 04/21/17 04:45 97.6 73 20 115/61 98 Room Air 04/21/17 00:00 97.5 64 20 109/71 97 Room Air 04/20/17 20:00 97.7 59 20 106/69 98 Room Air 04/20/17 16:00 97.9 71 20 121/74 98 Room Air Laboratory Tests 04/21/17 05:20: White Blood Count 4.5L, Red Blood Count 4.23L, Hemoglobin 12.3L, Hematocrit 36.0L, Mean Corpuscular Volume 85, Mean Corpuscular Hemoglobin 29.1, Mean Corpuscular Hemoglobin Concent 34.2, Red Cell Distribution Width 12.6, Platelet Count 332, Mean Platelet Volume 5.0L, Neutrophils (%) (Auto) 47.5, Lymphocytes ( %) (Auto) 36.2, Monocytes (%) (Auto) 10.3H, Eosinophils (%) (Auto) 4.2H, Basophils (%) (Auto) 1.9, Sodium Level 132L, Potassium Level 4.3, Chloride Level 103, Carbon Dioxide Level 21, Anion Gap 8, Blood Urea Nitrogen 7, Creatinine 0.8, Estimat Glomerular Filtration Rate > 60, Glucose Level 83, Calcium Level 8.2L Height (Feet): 5 Height (Inches): 6.00 Weight (Pounds): 165 Objective HEAD AND NECK: No JVP. No LAD. No thyromegaly. Extraocular movements intact. Pupils are reactive to light and accommodation. LUNGS: Clear to auscultation. CARDIAC: Regular rate and rhythm. S1 and S2. No murmur. No rub. ABDOMEN: Soft, nontender, and nondistended. EXTREMITIES: Trace edema. No clubbing. No cyanosis. PETROS MAC Apr 21, 2017 08:09
[2017-04-21] MEDS: Heparin 5000 units/ml inj SUBQ SCH (08:16)
--- NOTE | 2017-04-21 08:50 | Diagnostic Imaging Report ---
Indication: Abdominal pain Technique: Kimble-scale and duplex images of the upper abdomen were obtained Comparison: Reference made to abdomen pelvis CT: 03/28/17 Findings: Gallbladder is unremarkable, without stones, wall thickening, nor pericholecystic fluid. Sonographic Mancuso's sign is negative. Common bile duct measures 5 mm in diameter. No intrahepatic biliary ductal dilatation. Liver demonstrates normal echogenicity, no focal abnormality. Portal vein and hepatic veins are patent. Pancreas is unremarkable. Spleen is unremarkable. Left kidney measures 11.4 cm in length. Right kidney measures 10.7 cm length. Both kidneys demonstrate normal echogenicity. There is no hydronephrosis. No focal abnormality . Non-aneurysmal abdominal aorta . Impression: Negative
--- NOTE | 2017-04-21 09:55 | Wound Care Consultation ---
Wound Assessment Wound Assessment #1: Wound Number: 1 Wound Present on Admission: Yes New Wound: No Status Change of Wound: No Wound Location Body Site Modif: left, lateral Wound Location Body Site: heel Wound Type: other - diabetic ulcer Newton Test: Does not Newton Wound Thickness: Full Thickness Wound Length: 2.0 Wound Width: 2.0 Wound Depth: utd Percent of Wound Bed Yellow/Wh: 50 - thick dry scab Percent of Wound Black/Brown: 50 - thick dry brown scab Wound Drainage Amount: None Wound Drainage Odor: None/Absent Tissue Surrounding Wound: Indurated Wound General Appearance: Clean/Dry Wound Assessment #2: Wound Number: 2 Wound Present on Admission: Yes New Wound: No Status Change of Wound: No Wound Location Body Site Modif: mid Wound Location Body Site: sacral Wound Type: scar Newton Test: Does not Newton Wound Thickness: Full Thickness Wound Length: 5.0 Wound Width: 6.0 Wound Depth: utd Wound Drainage Amount: None Wound Drainage Odor: None/Absent Tissue Surrounding Wound: Intact Wound General Appearance: Open to air Wound Comment #1 left lateral heal diabetic ulcer with thick dry yellow/brown scab to site. #2 Mid sacral full thickness scar tissue.-intact Recommendation. - Local wound care as ordered. - Keep clean and dry. -Turn and reposition. - Offload affected site. -Avoid shear and friction. -Optimize nutrition. -Assess and notify MD for any changes of condition noted to skin. ELLIOT REYES Apr 21, 2017 09:55
[2017-04-21 12:00] VITALS: BP 118/69
--- NOTE | 2017-04-21 12:21 | GI Progress Note ---
Assessment/Plan Problems: (1) Diabetes ICD Codes: E11.9 - Type 2 diabetes mellitus without complications SNOMED: 60715924 (2) Vomiting ICD Codes: R11.10 - Vomiting, unspecified SNOMED: 264465781 Qualifiers: Qualified Codes: R11.2 - Nausea with vomiting, unspecified (3) Abdominal pain ICD Codes: R10.9 - Unspecified abdominal pain SNOMED: 46918577 Qualifiers: Qualified Codes: R10.13 - Epigastric pain (4) Hyponatremia ICD Codes: E87.1 - Hypo-osmolality and hyponatremia SNOMED: 14227446 Status: stable Status Narrative Discussed with Dr. Rubio. Assessment/Plan abdominal U/S >> negative okay for DC per GI standpoint symptomatic treatment ADA diet, tolerating electrolyte correction fu labs outpatient GI procedures Subjective Subjective denies any symptoms wants to be discharged Objective Last 24 Hour Vital Signs Date Time Temp Pulse Resp B/P (MAP) Pulse Ox O2 Delivery O2 Flow Rate FiO2 04/21/17 08:00 97.0 72 18 112/65 97 Room Air 04/21/17 04:45 97.6 73 20 115/61 98 Room Air 04/21/17 00:00 97.5 64 20 109/71 97 Room Air 04/20/17 20:00 97.7 59 20 106/69 98 Room Air 04/20/17 16:00 97.9 71 20 121/74 98 Room Air Intake and Output 04/21/17 04/22/17 18:59 06:59 Intake Total 450 ml Balance 450 ml IV Total 450 ml Laboratory Tests Test 04/21/17 05:20 White Blood Count 4.5 K/UL (4.8-10.8) L Red Blood Count 4.23 M/UL (4.70-6.10) L Hemoglobin 12.3 G/DL (14.2-18.0) L Hematocrit 36.0 % (42.0-52.0) L Mean Corpuscular Volume 85 FL (80-99) Mean Corpuscular Hemoglobin 29.1 PG (27.0-31.0) Mean Corpuscular Hemoglobin Concent 34.2 G/DL (32.0-36.0) Red Cell Distribution Width 12.6 % (11.6-14.8) Platelet Count 332 K/UL (150-450) Mean Platelet Volume 5.0 FL (6.5-10.1) L Neutrophils (%) (Auto) 47.5 % (45.0-75.0) Lymphocytes (%) (Auto) 36.2 % (20.0-45.0) Monocytes (%) (Auto) 10.3 % (1.0-10.0) H Eosinophils (%) (Auto) 4.2 % (0.0-3.0) H Basophils (%) (Auto) 1.9 % (0.0-2.0) Sodium Level 132 MMOL/L (136-145) L Potassium Level 4.3 MMOL/L (3.5-5.1) Chloride Level 103 MMOL/L (98-107) Carbon Dioxide Level 21 MMOL/L (21-32) Anion Gap 8 mmol/L (5-15) Blood Urea Nitrogen 7 mg/dL (7-18) Creatinine 0.8 MG/DL (0.55-1.30) Estimat Glomerular Filtration Rate > 60 mL/min (>60) Glucose Level 83 MG/DL (74-106) Calcium Level 8.2 MG/DL (8.5-10.1) L Height (Feet): 5 Height (Inches): 6.00 Weight (Pounds): 165 General Appearance: WD/WN, no apparent distress, alert Cardiovascular: normal rate Respiratory/Chest: normal breath sounds, no respiratory distress Abdominal Exam: normal bowel sounds, non tender, soft Extremities: normal range of motion, non-tender Peggy Hodgson N.Glen Apr 21, 2017 12:21
--- NOTE | 2017-04-21 13:00 | General Progress Note ---
Assessment/Plan Problem List: (1) Abdominal pain ICD Codes: R10.9 - Unspecified abdominal pain SNOMED: 04099719 Qualifiers: Qualified Codes: R10.13 - Epigastric pain (2) Vomiting ICD Codes: R11.10 - Vomiting, unspecified SNOMED: 161374782 Qualifiers: Qualified Codes: R11.2 - Nausea with vomiting, unspecified (3) Diabetes ICD Codes: E11.9 - Type 2 diabetes mellitus without complications SNOMED: 54561097 (4) Hyponatremia ICD Codes: E87.1 - Hypo-osmolality and hyponatremia SNOMED: 48714882 Status: stable, progressing, tolerating diet Assessment/Plan diet f/u ivf gi neph f/u cbc bmp am dc plan if clear Subjective Constitutional: Reports: weakness Allergies: Coded Allergies: No Known Allergies (Unverified , 10/19/16) All Systems: reviewed and negative except above Subjective calm in bed Objective Last 24 Hour Vital Signs Date Time Temp Pulse Resp B/P (MAP) Pulse Ox O2 Delivery O2 Flow Rate FiO2 04/21/17 08:00 97.0 72 18 112/65 97 Room Air 04/21/17 04:45 97.6 73 20 115/61 98 Room Air 04/21/17 00:00 97.5 64 20 109/71 97 Room Air 04/20/17 20:00 97.7 59 20 106/69 98 Room Air 04/20/17 16:00 97.9 71 20 121/74 98 Room Air Intake and Output 04/21/17 04/22/17 19:00 07:00 Intake Total 300 ml Balance 300 ml IV Total 300 ml Laboratory Tests 04/21/17 05:20: White Blood Count 4.5L, Red Blood Count 4.23L, Hemoglobin 12.3L, Hematocrit 36.0L, Mean Corpuscular Volume 85, Mean Corpuscular Hemoglobin 29.1, Mean Corpuscular Hemoglobin Concent 34.2, Red Cell Distribution Width 12.6, Platelet Count 332, Mean Platelet Volume 5.0L, Neutrophils (%) (Auto) 47.5, Lymphocytes ( %) (Auto) 36.2, Monocytes (%) (Auto) 10.3H, Eosinophils (%) (Auto) 4.2H, Basophils (%) (Auto) 1.9, Sodium Level 132L, Potassium Level 4.3, Chloride Level 103, Carbon Dioxide Level 21, Anion Gap 8, Blood Urea Nitrogen 7, Creatinine 0.8, Estimat Glomerular Filtration Rate > 60, Glucose Level 83, Calcium Level 8.2L Height (Feet): 5 Height (Inches): 6.00 Weight (Pounds): 165 General Appearance: alert EENT: normal ENT inspection Neck: normal alignment Cardiovascular: normal peripheral pulses, normal rate, regular rhythm Respiratory/Chest: chest wall non-tender, lungs clear, normal breath sounds Abdomen: normal bowel sounds, non tender, soft Extremities: normal inspection Edema: no edema noted Arm (L), no edema noted Arm (R), no edema noted Leg (L), no edema noted Leg (R), no edema noted Pedal (L), no edema noted Pedal (R), no edema noted Generalized Neurologic: motor weakness Skin: normal pigmentation, warm/dry ARMANDO WELLS Apr 21, 2017 13:00
--- NOTE | 2017-04-21 15:15 | Pulmonology Progress Note ---
Assessment/Plan Problems: (1) Hyponatremia (2) Vomiting (3) Abdominal pain (4) Diabetes Assessment/Plan improving all notes reviewed Na better BS better dc planning Subjective ROS Limited/Unobtainable: No Constitutional: Reports: no symptoms HEENT: Repors: no symptoms Respiratory: Reports: no symptoms Allergies: Coded Allergies: No Known Allergies (Unverified , 10/19/16) Objective Last 24 Hour Vital Signs Date Time Temp Pulse Resp B/P (MAP) Pulse Ox O2 Delivery O2 Flow Rate FiO2 04/21/17 12:00 98.0 76 20 118/69 98 Room Air 04/21/17 08:00 97.0 72 18 112/65 97 Room Air 04/21/17 04:45 97.6 73 20 115/61 98 Room Air 04/21/17 00:00 97.5 64 20 109/71 97 Room Air 04/20/17 20:00 97.7 59 20 106/69 98 Room Air 04/20/17 16:00 97.9 71 20 121/74 98 Room Air Intake and Output 04/21/17 04/22/17 19:00 07:00 Intake Total 300 ml Balance 300 ml IV Total 300 ml Objective General Appearance: WD/WN HEENT: normocephalic, atraumatic, PERRL Respiratory/Chest: chest wall non-tender, lungs clear Cardiovascular: no JVD Extremities: no cyanosis Skin: no rash Laboratory Tests 04/21/17 05:20: White Blood Count 4.5L, Red Blood Count 4.23L, Hemoglobin 12.3L, Hematocrit 36.0L, Mean Corpuscular Volume 85, Mean Corpuscular Hemoglobin 29.1, Mean Corpuscular Hemoglobin Concent 34.2, Red Cell Distribution Width 12.6, Platelet Count 332, Mean Platelet Volume 5.0L, Neutrophils (%) (Auto) 47.5, Lymphocytes ( %) (Auto) 36.2, Monocytes (%) (Auto) 10.3H, Eosinophils (%) (Auto) 4.2H, Basophils (%) (Auto) 1.9, Sodium Level 132L, Potassium Level 4.3, Chloride Level 103, Carbon Dioxide Level 21, Anion Gap 8, Blood Urea Nitrogen 7, Creatinine 0.8, Estimat Glomerular Filtration Rate > 60, Glucose Level 83, Calcium Level 8.2L Current Medications Medications (Trade) Dose Ordered Sig/Nancy Route PRN Reason Start Time Stop Time Status Last Admin Dose Admin Acetaminophen (Tylenol) 650 mg Q4H PRN ORAL fever 04/19/17 16:00 05/19/17 15:59 Acetaminophen/ Hydrocodone Bitart ([place]ison 5/325) 1 tab Q4H PRN ORAL Moderate Pain (Pain Scale 4-6) 04/20/17 17:45 04/27/17 17:44 04/20/17 20:26 Al Hydroxide/Mg Hydroxide (Mylanta II) 30 ml Q6H PRN ORAL dyspepsia 04/19/17 16:00 05/19/17 15:59 04/19/17 20:19 Dextrose (Dextrose 50%) STAT PRN IV Hypoglycemia 04/19/17 16:00 05/19/17 15:59 Diphenhydramine HCl (Benadryl) 25 mg Q6H PRN ORAL Itching/Pruritis 04/19/17 16:00 05/19/17 15:59 Heparin Sodium (Porcine) (Heparin 5000 units/ml) 5,000 units EVERY 12 HOURS SUBQ 04/19/17 21:00 05/19/17 08:59 04/21/17 08:16 Influenza Virus Vaccine Quadrival (Flu Vaccine Quadrivalent) 0.5 ml ONCE ONCE IM 04/21/17 14:45 04/21/17 14:46 UNV Insulin Aspart (NovoLOG) BEFORE MEALS AND HS SUBQ 04/19/17 16:30 05/19/17 06:29 04/20/17 21:36 Nitroglycerin (Ntg) 0.4 mg Q5M X 3 DOSES PRN SL Prn Chest Pain 04/19/17 15:45 05/19/17 05:44 Ondansetron HCl (Zofran) 4 mg Q6H PRN IVP Nausea & Vomiting 04/19/17 16:00 05/19/17 15:59 Polyethylene Glycol (Miralax) 17 gm HSPRN PRN ORAL Constipation 04/19/17 16:00 05/19/17 15:59 Sodium Chloride 1,000 ml @ 150 mls/hr Q6H40M IV 04/19/17 16:00 05/19/17 15:59 04/21/17 13:47 Temazepam (Restoril) 15 mg HSPRN PRN ORAL Insomnia 04/19/17 16:00 04/26/17 15:59 04/20/17 20:25 MOISES LUBIN Apr 21, 2017 15:15
[2017-04-21 16:00] VITALS: BP 121/71
[2017-04-21] MEDS ORDERED: Flu Vaccine Quadrivalent 0.5ml IM ONE (16:00)
--- NOTE | 2017-04-21 20:47 | Diagnostic Imaging Report ---
APPROVED REPORT CPT Code: 49499 Present Symptoms Lower Extremity Pain: Bilateral BILATERAL: Imaging reveals a patent deep venous system bilaterally. There is no evidence of thrombus within the femoral, popliteal or tibial segments. The greater saphenous veins are also within normal limits. Doppler indicates normal spontaneous flow within these segments.
--- NOTE | 2017-04-22 14:36 | Discharge Summary ---
Discharge Summary Hospital Course Date of Admission Apr 18, 2017 at 23:28 Date of Discharge Apr 21, 2017 at 18:00 Admitting Diagnosis Hyponatremia. STEVEN Hernandez is a 57 year old male who was admitted on Apr 18, 2017 at 23:28 for Hyponatremia Hospital Course dc summary #[id number] Discharge Medications Continued Medications: Metformin Hcl* (Metformin Hcl*) 500 Mg Tablet 500 MG ORAL TWICE A DAY for 30 Days, TAB Discontinued Medications: Bacitracin (Bacitracin) 28.4 Gm Oint...g. 1 APPLIC TOPIC BID, #10 GM Ibuprofen* (Motrin*) 600 Mg Tablet 600 MG ORAL Q6H PRN for For Pain, #20 TAB No Known Medications* (NKM - No Known Medications*) . 0 ., 0 Refills Tramadol Hcl* (Ultram*) 50 Mg Tablet 50 MG ORAL Q6H PRN for For Pain, #10 TAB 0 Refills Discharge Discharge Disposition Patient was discharged to Home (01) Discharge Diagnoses: Discharge Instructions Discharge Instructions Special Instructions I have been assigned to complete a D/C Summary on this account. I was not involved in the patient management Thi Massey NP (Vanchtein) Apr 22, 2017 14:36
--- NOTE | 2017-04-23 04:00 | Discharge Summary 2 SIG ---
DATE OF ADMISSION: 04/18/2017 DATE OF DISCHARGE: 04/21/2017 REASON FOR ADMISSION: 57-year-old male with a history of diabetes, presented with a complaint of abdominal pain, nausea and vomiting for tone week. The patient stated he was unable to keep anything down. Symptoms worsened over the last two days. The pain was described as 9/10 on a scale 1 to 10 and diffused in nature. No diarrhea. Vomiting described as nonbloody and nonbilious. No blood in the stool. Vital signs were stable. Laboratory workup revealed acute hyponatremia with sodium -118 and potassium-3.2. No fever. No leukocytosis. EKG revealed normal sinus rhythm. CT of the abdomen and pelvis revealed no evidence of bowel obstruction. No dilated loops of bowels , no free fluid or free air was seen, no bowel wall thickening. No hydronephrosis. No urinary tract stone. No significant lymphadenopathy. CT of the head was done, since the patient also complained of severe headache. It revealed no acute intracranial pathology. The patient was admitted for further management for diagnosis of acute hyponatremia, intractable nausea, and vomiting. HOSPITAL COURSE: The patient was admitted. Nephrology and GI consults were requested. Workup for hyponatremia was initiated. The patient was started on the IV fluids with normal saline. Free water restriction was maintained. Pain management provided. Antiemetic provided as needed. GI closely followed. GI recommended outpatient GI procedure and symptomatic treatment. Antiemetic provided as needed. Diet slowly advanced. The patient was able to tolerate diet. Hemoglobin A1c- 6.1. Blood sugar was managed with sliding scale of insulin and was stable. Coin Machine Service Repairer closely followed and directed the treatment for acute hyponatremia. Prior to discharge, sodium up to 132 and potassium-4.3. Venous Duplex of bilateral lower extremities was negative. Abdominal ultrasound was negative. GI and budget assistant both cleared the patient for discharge. Wound care nurse seen and evaluated the patient for left lateral heel diabetic ulcer, present on admission.Wound care was provided as per wound nurse recommendations. Headache resolved. Patient was stable for discharge home. FINAL DIAGNOSES: 1. Hypovolemic hyponatremia, resolved. 2. Hypokalemia, resolved. 3. Abdominal pain, resolved. 4. Intractable nausea and vomiting, resolved. 5. Headache. 6. Diabetes mellitus, type 2. 7. Left lateral heel decubitus ulcer, present on admission. DISCHARGE MEDICATIONS: See medication reconciliation list. DISCHARGE INSTRUCTIONS: The patient was discharged home. Follow up with the primary medical doctor. Carlos Alberto D.O. I have been assigned to dictate discharge summary on this account and I was not involved in the patient's management. Thi HinojosaDoctors HospitalMarion N.PKourtney DR: Otilia JOB#: [id number] CC: TIMO
--- NOTE | 2017-04-27 15:59 | Cardiology Report ---
APPROVED REPORT EKG Measurement Heart [id number] Normal sinus rhythm Low voltage QRS Cannot rule out Anterior infarct, age undetermined Abnormal ECG
== END 2017-04-21 18:00 | disposition home or self-care (01) | DRG 641 ==
LOC: EDBD 20:49 → EMR 21:30 → 2E 23:28 → EDBEDREQ 04-19 00:02 → 4E 04-19 15:54
DX: E87.1 Hypo-osmolality and hyponatremia (principal); E86.1 Hypovolemia; E11.621 Type 2 diabetes mellitus with foot ulcer; L97.429 Non-pressure chronic ulcer of left heel and midfoot with unspecified severity; E11.9 Type 2 diabetes mellitus without complications; Z23 Encounter for immunization; R10.9 Unspecified abdominal pain; R11.2 Nausea with vomiting, unspecified; R51 Headache; E87.6 Hypokalemia
CPT/HCPCS: 36415; 70450; 74176; 76700; 80048; 80053; 81003; 82043; 82044; 82150; 82570; 82962; 83036; 83690; 83735; 83930; 83935; 84100; 84295; 84300; 84443; 85025; 85610; 85651; 85730; 86140; 89050; 90630; 93005; 93970; 99285; J1815; J2405